=== PATIENT | female | born 1975 | race American Indian/Alaskan Native ===

== ENCOUNTER 2017-11-08 22:47 | Emergency (ER) | payer SELFPAY ==
[2017-11-08] MEDS ORDERED: D5NS 0.2% 1,000 ML IV SCH (23:45)
[2017-11-08 23:48] VITALS: BP 124/78
== END 2017-11-09 02:00 | disposition left against medical advice (07) ==
LOC: ED 22:47
DX: M54.5 Low back pain (principal); Z53.21 Procedure and treatment not carried out due to patient leaving prior to being seen by health care provider

== ENCOUNTER 2017-12-16 13:03 | Emergency (ER) | payer MEDICARE ==
[2017-12-16] MEDS ORDERED: ZOFRAN ODT PO ONE (14:09)
[2017-12-16] MEDS ORDERED: BANOPHEN PO ONE (14:09)
[2017-12-16] MEDS ORDERED: NACL 0.9% 1000 ML 1,000 ML IV ONE (14:10)
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
[2017-12-16 14:22] LABS: Hematocrit 32.5 % (30.3-42.9); Hemoglobin 11.1 gm/dl (10.1-14.3); Mean Corpuscular HGB Conc 34 % (30-34); Mean Corpuscular Hemoglobin 29 pg (28-32); Mean Corpuscular Volume 86 fl (79-97); Platelet Count 239 K/mm3 (140-440); Red Blood Count 3.79 M/mm3 (3.65-5.03); Red Cell Distribution Width 15.1 % (13.2-15.2)
[2017-12-16 14:23] LABS: BUN/Creatinine Ratio 24; Blood Urea Nitrogen 12 mg/dL (7-17); Calcium 8.7 mg/dL (8.4-10.2); Hemolysis Index 12
[2017-12-16] MEDS: MORPHINE IV PRN ×2 (14:53→15:23)
[2017-12-16 15:05] LABS: Total Cells Counted 100
[2017-12-16 15:06] LABS: Ovalocytes Few; Poikilocytosis 1+; Target Cells 1+
[2017-12-16 15:07] LABS: Platelet Estimate Consistent w Auto
[2017-12-16 15:59] VITALS: BP 114/73
== END 2017-12-16 16:24 | disposition home or self-care (01) ==
LOC: ED 13:03
DX: D57.00 Hb-SS disease with crisis, unspecified (principal); F17.200 Nicotine dependence, unspecified, uncomplicated
CPT/HCPCS: 36415; 80048; 85007; 85025; 85045; 96374; 99283; J2270; J7030; Q0162; Q0163

== ENCOUNTER 2017-12-18 22:11 | Emergency (ER) | payer MEDICARE ==
[2017-12-18] MEDS ORDERED: D5NS 0.2% 1,000 ML IV SCH (23:45)
[2017-12-19 00:52] LABS: Hematocrit 30.5 % (30.3-42.9); Hemoglobin 10.8 gm/dl (10.1-14.3); Mean Corpuscular HGB Conc 35 % (30-34); Mean Corpuscular Hemoglobin 30 pg (28-32); Mean Corpuscular Volume 85 fl (79-97); Platelet Count 218 K/mm3 (140-440); Red Blood Count 3.58 M/mm3 (3.65-5.03); Red Cell Distribution Width 15.5 % (13.2-15.2)
[2017-12-19] MEDS ORDERED: MORPHINE IV ONE (03:20)
[2017-12-19] MEDS ORDERED: ZOFRAN IV ONE (03:20)
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
[2017-12-19 03:56] LABS: Basophils % (Manual) 0 % (0.0-1.8); Total Cells Counted 100
[2017-12-19 03:57] LABS: Target Cells 1+
[2017-12-19 04:36] VITALS: BP 116/75
== END 2017-12-19 04:23 | disposition home or self-care (01) ==
LOC: ED 22:11
DX: D57.00 Hb-SS disease with crisis, unspecified (principal); I10 Essential (primary) hypertension; Z86.711 Personal history of pulmonary embolism
CPT/HCPCS: 36415; 84703; 85007; 85025; 85045; 96374; 96375; 99283; J2270; J2405

== ENCOUNTER 2018-11-19 11:36 | Emergency (ER) | payer MEDICARE ==
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
[2018-11-19 12:04] LABS: Hematocrit 29.9 % (30.3-42.9); Mean Corpuscular HGB Conc 34 % (30-34); Mean Corpuscular Volume 87 fl (79-97); Platelet Count 543 K/mm3 (140-440); Red Blood Count 3.44 M/mm3 (3.65-5.03); Red Cell Distribution Width 18.9 % (13.2-15.2)
[2018-11-19 12:09] LABS: Bilirubin,Urine NEG (Negative); Blood,Urine NEG (Negative); Color,Urine Yellow (Yellow); Mucus,Urine FEW /HPF; Protein,Urine <15 mg/dL mg/dL (Negative); Urobilinogen,Urine < 2.0 mg/dL (<2.0)
[2018-11-19 12:18] LABS: BUN/Creatinine Ratio 15; Blood Urea Nitrogen 9 mg/dL (7-17); Calcium 8.2 mg/dL (8.4-10.2); Hemolysis Index 7
[2018-11-19 12:24] LABS: Amphetamine Screen,Urine PRESUMPTIVE NEGATIVE; Benzodiazepines Screen,Urine PRESUMPTIVE NEGATIVE; Cannabinoid Screen,Urine PRESUMPTIVE NEGATIVE; Cocaine Screen,Urine PRESUMPTIVE NEGATIVE; Methadone Screen,Urine PRESUMPTIVE NEGATIVE; Opiate Screen,Urine PRESUMPTIVE NEGATIVE
[2018-11-19 12:38] LABS: Basophils % (Manual) 0 % (0.0-1.8); Total Cells Counted 100
[2018-11-19 12:39] LABS: Giant Platelets Rare; Platelet Estimate Consistent w Auto; Poikilocytosis 1+; Target Cells 1+
[2018-11-19] MEDS ORDERED: HALDOL IM PRN (12:40)
[2018-11-19] MEDS ORDERED: ATIVAN IM PRN (12:40)
[2018-11-19] MEDS ORDERED: ROXICODONE PO PRN (12:47)
--- NOTE | 2018-11-19 13:09 | Emergency Department Report ---
ED General Adult HPI - General Chief complaint: Psych Stated complaint: MENTAL EVAL Time Seen by Provider: 11/19/18 11:40 Source: patient, RN notes reviewed, old records reviewed Mode of arrival: Ambulatory Limitations: No Limitations - History of Present Illness Initial comments: This is a 43-year-old female. I have evaluated this patient in the past. Her past medical history includes bipolar disorder, not currently taking any medications secondary to having ran out of her medications last week, and sickle cell disease. The patient presents to the emergency room with a complaint of suicidality. She wants to cut herself. She reports that she is depressed. She has not tried to overdose. She denies access to guns or firearms. She reports feeling stressed out about her personal life. She has chronic back pain. It is aching, throbbing and sharp, increases with palpation and decreases with rest. It does not radiate anywhere. There is no abdominal pain. There are no urinary symptoms. The patient does not endorse sickle cell pain at this time. -: Gradual Location: back Radiation: non-radiation Quality: aching Consistency: other Improves with: other Worsens with: other - Related Data Previous Rx's Medication Instructions Recorded Last Taken Type HYDROcodone/APAP 10-325 [[place] 1 each PO Q6HR PRN #20 tablet 12/16/17 Unknown Rx 10/325] Promethazine [Phenergan TAB] 25 mg PO Q6HR PRN #20 tab 12/16/17 Unknown Rx Allergies Allergy/AdvReac Type Severity Reaction Status Date / Time aztreonam [From Azactam] Allergy Anaphylaxis Verified 11/19/18 11:38 butorphanol [From Stadol] Allergy Hives Verified 11/19/18 11:38 ketorolac [From Toradol] Allergy Hives Verified 11/19/18 11:38 prochlorperazine Allergy Hives Verified 11/19/18 11:38 [From Compazine] ED Review of Systems ROS: Stated complaint: MENTAL EVAL Other details as noted in HPI Constitutional: malaise. denies: fever Eyes: denies: vision change ENT: denies: epistaxis Respiratory: denies: cough Cardiovascular: denies: chest pain Gastrointestinal: denies: abdominal pain Genitourinary: denies: dysuria Musculoskeletal: back pain Skin: denies: lesions Neurological: weakness. denies: headache, numbness, paresthesias, confusion, abnormal gait, vertigo Psychiatric: anxiety, depression, suicidal thoughts ED Past Medical Hx - Past Medical History Previous Medical History?: Yes Hx Hypertension: Yes Hx Sickle Cell Disease: Yes Additional medical history: a vascular necrosis, PE (2018) - Surgical History Past Surgical History?: Yes Additional Surgical History: C section - Social History Smoking Status: Never Smoker Substance Use Type: None - Medications Home Medications: Home Medications Medication Instructions Recorded Confirmed Last Taken Type HYDROcodone/APAP 10-325 [[place] 1 each PO Q6HR PRN #20 tablet 12/16/17 Unknown Rx 10/325] Promethazine [Phenergan TAB] 25 mg PO Q6HR PRN #20 tab 12/16/17 Unknown Rx ED Physical Exam - General Limitations: No Limitations General appearance: alert, anxious - Head Head exam: Present: atraumatic, normocephalic - Eye Eye exam: Present: normal appearance, PERRL, EOMI, other (visual acuity intact to finger counting, color perception, reading at a close distance). Absent: nystagmus - ENT ENT exam: Present: normal exam, normal orophraynx, mucous membranes moist, normal external ear exam - Neck Neck exam: Present: normal inspection, full ROM. Absent: tenderness, meningismus - Respiratory Respiratory exam: Present: normal lung sounds bilaterally. Absent: respiratory distress - Cardiovascular Cardiovascular Exam: Present: regular rate, normal rhythm, normal heart sounds. Absent: bradycardia, tachycardia, irregular rhythm, systolic murmur, diastolic murmur, rubs, gallop - GI/Abdominal GI/Abdominal exam: Present: soft. Absent: distended, tenderness, guarding, rebound, rigid, pulsatile mass - Extremities Exam Extremities exam: Present: normal inspection, full ROM, other (2+ pulses noted in the bilateral upper, lower extremities. Compartments soft. No long bony tenderness. The pelvis is stable.). Absent: pedal edema, joint swelling, calf tenderness - Back Exam Back exam: Present: normal inspection, full ROM. Absent: tenderness, CVA tenderness (R), CVA tenderness (L), paraspinal tenderness, vertebral tenderness - Neurological Exam Neurological exam: Present: alert, oriented X3, normal gait, other (Extraocular movements intact. Tongue midline. No facial droop. Facial sensation intact to light touch in the V1, V2, V3 distribution bilaterally. 5 and 5 strength in 4 extremities.. Sensation is intact to light touch in 4 extremities.). Absent: motor sensory deficit - Psychiatric Psychiatric exam: Present: anxious - Skin Skin exam: Present: warm, dry, intact, normal color. Absent: rash ED Course Vital Signs 11/19/18 11:41 Temperature 98.4 F Pulse Rate 87 Respiratory 20 Rate Blood Pressure 140/92 O2 Sat by Pulse 100 Oximetry ED Medical Decision Making - Lab Data Result diagrams: 11/19/18 11:46 11/19/18 11:46 Vital Signs 11/19/18 11:41 Temperature 98.4 F Pulse Rate 87 Respiratory 20 Rate Blood Pressure 140/92 O2 Sat by Pulse 100 Oximetry Lab Results 11/19/18 11/19/18 11/19/18 Range/Units 11:46 11:46 11:46 WBC (4.5-11.0) K/mm3 RBC (3.65-5.03) M/mm3 Hgb (10.1-14.3) gm/dl Hct (30.3-42.9) % MCV (79-97) fl MCH (28-32) pg MCHC (30-34) % RDW (13.2-15.2) % Plt Count (140-440) K/mm3 Lymph % (Auto) Add Manual Diff Total Counted Seg Neutrophils % Seg Neuts % (Manual) (40.0-70.0) % Band Neutrophils % % Lymphocytes % (Manual) (13.4-35.0) % Reactive Lymphs % (Man) % Monocytes % (Manual) (0.0-7.3) % Eosinophils % (Manual) (0.0-4.3) % Basophils % (Manual) (0.0-1.8) % Metamyelocytes % % Myelocytes % % Promyelocytes % % Blast Cells % % Nucleated RBC % Seg Neutrophils # Man (1.8-7.7) K/mm3 Band Neutrophils # K/mm3 Lymphocytes # (Manual) (1.2-5.4) K/mm3 Abs React Lymphs (Man) K/mm3 Monocytes # (Manual) (0.0-0.8) K/mm3 Eosinophils # (Manual) (0.0-0.4) K/mm3 Basophils # (Manual) (0.0-0.1) K/mm3 Metamyelocytes # K/mm3 Myelocytes # K/mm3 Promyelocytes # K/mm3 Blast Cells # K/mm3 WBC Morphology Hypersegmented Neuts Hyposegmented Neuts Hypogranular Neuts Smudge Cells Toxic Granulation Toxic Vacuolation Dohle Bodies Pelger-Huet Anomaly Lottie Rods Platelet Estimate Clumped Platelets Plt Clumps, EDTA Large Platelets Giant Platelets Platelet Satelliting Plt Morphology Comment RBC Morphology Dimorphic RBCs Polychromasia Hypochromasia Poikilocytosis Anisocytosis Microcytosis Macrocytosis Spherocytes Pappenheimer Bodies Sickle Cells Target Cells Tear Drop Cells Ovalocytes Helmet Cells [place] Bodies [place] Rings [place] Cells Bite Cells Crenated Cell Elliptocytes Acanthocytes (Spur) Rouleaux Hemoglobin C Crystals Schistocytes Malaria parasites Jer Bodies Hem Pathologist Commnt Sodium 134 L (137-145) mmol/L Potassium 4.3 (3.6-5.0) mmol/L Chloride 104.0 (98-107) mmol/L Carbon Dioxide 19 L (22-30) mmol/L Anion Gap 15 mmol/L BUN 9 (7-17) mg/dL Creatinine 0.6 L (0.7-1.2) mg/dL Estimated GFR > 60 ml/min BUN/Creatinine Ratio 15 % Glucose 76 (65-100) mg/dL Calcium 8.2 L (8.4-10.2) mg/dL Urine Color (Yellow) Urine Turbidity (Clear) Urine pH (5.0-7.0) Ur Specific [place] (1.003-1.030) Urine Protein (Negative) mg/dL Urine Glucose (UA) (Negative) mg/dL Urine Ketones (Negative) mg/dL Urine Blood (Negative) Urine Nitrite (Negative) Urine Bilirubin (Negative) Urine Urobilinogen (<2.0) mg/dL Ur Leukocyte Esterase (Negative) Urine WBC (Auto) (0.0-6.0) /HPF Urine RBC (Auto) (0.0-6.0) /HPF U Epithel Cells (Auto) (0-13.0) /HPF Urine Mucus /HPF Salicylates < 0.3 L (2.8-20.0) mg/dL Urine Opiates Screen Urine Methadone Screen Acetaminophen < 5.0 L (10.0-30.0) ug/mL Ur Barbiturates Screen Ur Phencyclidine Scrn Ur Amphetamines Screen U Benzodiazepines Scrn Urine Cocaine Screen U Marijuana (THC) Screen Drugs of Abuse Note Plasma/Serum Alcohol (0-0.07) % 11/19/18 11/19/18 11/19/18 Range/Units 11:46 11:46 11:51 WBC 4.8 (4.5-11.0) K/mm3 RBC 3.44 L (3.65-5.03) M/mm3 Hgb 10.0 L (10.1-14.3) gm/dl Hct 29.9 L (30.3-42.9) % MCV 87 (79-97) fl MCH 29 (28-32) pg MCHC 34 (30-34) % RDW 18.9 H (13.2-15.2) % Plt Count 543 H (140-440) K/mm3 Lymph % (Auto) Prefinish Operator Add Manual Diff Complete Total Counted 100 Seg Neutrophils % Prefinish Operator Seg Neuts % (Manual) 55.0 (40.0-70.0) % Band Neutrophils % 0 % Lymphocytes % (Manual) 41.0 H (13.4-35.0) % Reactive Lymphs % (Man) 0 % Monocytes % (Manual) 2.0 (0.0-7.3) % Eosinophils % (Manual) 2.0 (0.0-4.3) % Basophils % (Manual) 0 (0.0-1.8) % Metamyelocytes % 0 % Myelocytes % 0 % Promyelocytes % 0 % Blast Cells % 0 % Nucleated RBC % Not Reportable Seg Neutrophils # Man 2.6 (1.8-7.7) K/mm3 Band Neutrophils # 0.0 K/mm3 Lymphocytes # (Manual) 2.0 (1.2-5.4) K/mm3 Abs React Lymphs (Man) 0.0 K/mm3 Monocytes # (Manual) 0.1 (0.0-0.8) K/mm3 Eosinophils # (Manual) 0.1 (0.0-0.4) K/mm3 Basophils # (Manual) 0.0 (0.0-0.1) K/mm3 Metamyelocytes # 0.0 K/mm3 Myelocytes # 0.0 K/mm3 Promyelocytes # 0.0 K/mm3 Blast Cells # 0.0 K/mm3 WBC Morphology Not Reportable Hypersegmented Neuts Not Reportable Hyposegmented Neuts Not Reportable Hypogranular Neuts Not Reportable Smudge Cells Not Reportable Toxic Granulation Not Reportable Toxic Vacuolation Not Reportable Dohle Bodies Not Reportable Pelger-Huet Anomaly Not Reportable Lottie Rods Not Reportable Platelet Estimate Consistent w auto Clumped Platelets Not Reportable Plt Clumps, EDTA Not Reportable Large Platelets Not Reportable Giant Platelets Rare Platelet Satelliting Not Reportable Plt Morphology Comment Not Reportable RBC Morphology Not Reportable Dimorphic RBCs Not Reportable Polychromasia Not Reportable Hypochromasia Not Reportable Poikilocytosis 1+ Anisocytosis Not Reportable Microcytosis Not Reportable Macrocytosis Not Reportable Spherocytes Not Reportable Pappenheimer Bodies Not Reportable Sickle Cells Not Reportable Target Cells 1+ Tear Drop Cells Not Reportable Ovalocytes Not Reportable Helmet Cells Not Reportable [place] Bodies Not Reportable [place] Rings Not Reportable [place] Cells Not Reportable Bite Cells Not Reportable Crenated Cell Not Reportable Elliptocytes Not Reportable Acanthocytes (Spur) Not Reportable Rouleaux Not Reportable Hemoglobin C Crystals Not Reportable Schistocytes Not Reportable Malaria parasites Not Reportable Jer Bodies Not Reportable Hem Pathologist Commnt No Sodium (137-145) mmol/L Potassium (3.6-5.0) mmol/L Chloride (98-107) mmol/L Carbon Dioxide (22-30) mmol/L Anion Gap mmol/L BUN (7-17) mg/dL Creatinine (0.7-1.2) mg/dL Estimated GFR ml/min BUN/Creatinine Ratio % Glucose (65-100) mg/dL Calcium (8.4-10.2) mg/dL Urine Color Yellow (Yellow) Urine Turbidity Clear (Clear) Urine pH 5.0 (5.0-7.0) Ur Specific [place] 1.015 (1.003-1.030) Urine Protein <15 mg/dl (Negative) mg/dL Urine Glucose (UA) Neg (Negative) mg/dL Urine Ketones Neg (Negative) mg/dL Urine Blood Neg (Negative) Urine Nitrite Neg (Negative) Urine Bilirubin Neg (Negative) Urine Urobilinogen < 2.0 (<2.0) mg/dL Ur Leukocyte Esterase Neg (Negative) Urine WBC (Auto) 1.0 (0.0-6.0) /HPF Urine RBC (Auto) 1.0 (0.0-6.0) /HPF U Epithel Cells (Auto) 2.0 (0-13.0) /HPF Urine Mucus Few /HPF Salicylates (2.8-20.0) mg/dL Urine Opiates Screen Urine Methadone Screen Acetaminophen (10.0-30.0) ug/mL Ur Barbiturates Screen Ur Phencyclidine Scrn Ur Amphetamines Screen U Benzodiazepines Scrn Urine Cocaine Screen U Marijuana (THC) Screen Drugs of Abuse Note Plasma/Serum Alcohol < 0.01 (0-0.07) % 11/19/18 Range/Units 11:51 WBC (4.5-11.0) K/mm3 RBC (3.65-5.03) M/mm3 Hgb (10.1-14.3) gm/dl Hct (30.3-42.9) % MCV (79-97) fl MCH (28-32) pg MCHC (30-34) % RDW (13.2-15.2) % Plt Count (140-440) K/mm3 Lymph % (Auto) Add Manual Diff Total Counted Seg Neutrophils % Seg Neuts % (Manual) (40.0-70.0) % Band Neutrophils % % Lymphocytes % (Manual) (13.4-35.0) % Reactive Lymphs % (Man) % Monocytes % (Manual) (0.0-7.3) % Eosinophils % (Manual) (0.0-4.3) % Basophils % (Manual) (0.0-1.8) % Metamyelocytes % % Myelocytes % % Promyelocytes % % Blast Cells % % Nucleated RBC % Seg Neutrophils # Man (1.8-7.7) K/mm3 Band Neutrophils # K/mm3 Lymphocytes # (Manual) (1.2-5.4) K/mm3 Abs React Lymphs (Man) K/mm3 Monocytes # (Manual) (0.0-0.8) K/mm3 Eosinophils # (Manual) (0.0-0.4) K/mm3 Basophils # (Manual) (0.0-0.1) K/mm3 Metamyelocytes # K/mm3 Myelocytes # K/mm3 Promyelocytes # K/mm3 Blast Cells # K/mm3 WBC Morphology Hypersegmented Neuts Hyposegmented Neuts Hypogranular Neuts Smudge Cells Toxic Granulation Toxic Vacuolation Dohle Bodies Pelger-Huet Anomaly Lottie Rods Platelet Estimate Clumped Platelets Plt Clumps, EDTA Large Platelets Giant Platelets Platelet Satelliting Plt Morphology Comment RBC Morphology Dimorphic RBCs Polychromasia Hypochromasia Poikilocytosis Anisocytosis Microcytosis Macrocytosis Spherocytes Pappenheimer Bodies Sickle Cells Target Cells Tear Drop Cells Ovalocytes Helmet Cells [place] Bodies [place] Rings [place] Cells Bite Cells Crenated Cell Elliptocytes Acanthocytes (Spur) Rouleaux Hemoglobin C Crystals Schistocytes Malaria parasites Jer Bodies Hem Pathologist Commnt Sodium (137-145) mmol/L Potassium (3.6-5.0) mmol/L Chloride (98-107) mmol/L Carbon Dioxide (22-30) mmol/L Anion Gap mmol/L BUN (7-17) mg/dL Creatinine (0.7-1.2) mg/dL Estimated GFR ml/min BUN/Creatinine Ratio % Glucose (65-100) mg/dL Calcium (8.4-10.2) mg/dL Urine Color (Yellow) Urine Turbidity (Clear) Urine pH (5.0-7.0) Ur Specific [place] (1.003-1.030) Urine Protein (Negative) mg/dL Urine Glucose (UA) (Negative) mg/dL Urine Ketones (Negative) mg/dL Urine Blood (Negative) Urine Nitrite (Negative) Urine Bilirubin (Negative) Urine Urobilinogen (<2.0) mg/dL Ur Leukocyte Esterase (Negative) Urine WBC (Auto) (0.0-6.0) /HPF Urine RBC (Auto) (0.0-6.0) /HPF U Epithel Cells (Auto) (0-13.0) /HPF Urine Mucus /HPF Salicylates (2.8-20.0) mg/dL Urine Opiates Screen Presumptive negative Urine Methadone Screen Presumptive negative Acetaminophen (10.0-30.0) ug/mL Ur Barbiturates Screen Presumptive negative Ur Phencyclidine Scrn Presumptive negative Ur Amphetamines Screen Presumptive negative U Benzodiazepines Scrn Presumptive negative Urine Cocaine Screen Presumptive negative U Marijuana (THC) Screen Presumptive negative Drugs of Abuse Note Disclamer Plasma/Serum Alcohol (0-0.07) % - Medical Decision Making Differential diagnosis, including but not limited to: Suicidality, mood disorder , chronic pain syndrome, anxiety, medical clearance for psychiatric placement Assessment and plan: 43-year-old female with a primary complaint of suicidality and wanting to hurt herself. She endorses numerous psychosocial stressors. Her physical exam is unremarkable. Screening laboratory studies are unremarkable. No significant musculoskeletal tenderness noted. The patient is placed on a 1013. Explained significance of the 1013 to the patient. She verbalizes understanding. We have requested a psychiatric consultation. At this point in time, the patient does not appear to have an immediate medical contraindication to psychiatric admission, evaluation, consultation, placement. Critical care attestation.: If time is entered above; I have spent that time in minutes in the direct care of this critically ill patient, excluding procedure time. ED Disposition Clinical Impression: Medical clearance for psychiatric admission Disposition: DC/TX-65 PSY HOSP/PSY UNIT Is pt being admited?: No Does the pt Need Aspirin: No Condition: Stable Referrals: GUILLERMO LANDRUM MD [Primary Care Provider] - 3-5 Days
[2018-11-19 20:54] VITALS: BP 93/64
== END 2018-11-19 21:53 ==
LOC: ED 11:36 → EEVIPCON 11:36 → ED 21:53
DX: F31.9 Bipolar disorder, unspecified (principal); I10 Essential (primary) hypertension; Z88.6 Allergy status to analgesic agent; Z88.8 Allergy status to other drugs, medicaments and biological substances
CPT/HCPCS: 36415; 80048; 80164; 80307; 81001; 85007; 85025; 96372; 99285; G0480; J2060; 80320

== ENCOUNTER 2018-11-29 19:26 | Emergency (ER) | payer MEDICARE ==
[2018-11-29 19:47] VITALS: BP 119/68
--- NOTE | 2018-11-29 20:14 | Emergency Department Report ---
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
[2018-11-29] MEDS ORDERED: TYLENOL PO ONE (20:16)
[2018-11-29] MEDS ORDERED: TYLENOL ONE (20:19)
--- NOTE | 2018-11-29 20:21 | Emergency Department Report ---
Blank Doc - Documentation Documentation: 8:19 PM pt is refusing labs, states she will have her labs drawn once she has a room and has an IV pt requesting something for pain in triage, advised pt all we have up front is tylenol, pt asked for tylenol 3 advised that we do not have tylenol 3 in triage, pt given tylenol in triage
[2018-11-29 21:38] LABS: Hemoglobin 10.1 gm/dl (10.1-14.3); Mean Corpuscular HGB Conc 35 % (30-34); Mean Corpuscular Volume 88 fl (79-97); Platelet Count 367 K/mm3 (140-440); Red Blood Count 3.31 M/mm3 (3.65-5.03); Red Cell Distribution Width 19.9 % (13.2-15.2)
[2018-11-29 21:51] LABS: Alanine Aminotransferase 12 units/L (7-56); Albumin 4.1 g/dL (3.9-5); BUN/Creatinine Ratio 29; Blood Urea Nitrogen 20 mg/dL (7-17); Calcium 9.1 mg/dL (8.4-10.2); Hemolysis Index 47
[2018-11-29 22:57] LABS: Basophils % (Manual) 0 % (0.0-1.8); Total Cells Counted 100
[2018-11-29 22:58] LABS: Anisocytosis 1+; Hypochromasia 1+; Platelet Estimate Consistent w Auto; Target Cells 1+
[2018-11-29 22:59] LABS: Poikilocytosis Few
== END 2018-11-29 21:00 | disposition left against medical advice (07) ==
LOC: ED 19:26
DX: D57.80 Other sickle-cell disorders without crisis (principal); Z53.21 Procedure and treatment not carried out due to patient leaving prior to being seen by health care provider
CPT/HCPCS: 36415; 80053; 83615; 84703; 85007; 85025; 85045

== ENCOUNTER 2018-11-30 08:13 | Emergency (ER) | payer MEDICARE ==
[2018-11-30] MEDS ORDERED: TYLENOL #3 PO ONE (09:36)
--- NOTE | 2018-11-30 09:45 | Emergency Department Report ---
ED General Adult HPI - General Chief complaint: Sickle Cell Crisis Stated complaint: SICKLE CELL CRISIS Time Seen by Provider: 11/30/18 08:55 Source: patient Mode of arrival: Ambulatory Limitations: No Limitations - History of Present Illness Initial comments: 43-year-old female presents to ED with complaint of sickle cell pain. Patient reports history of sickle cell disease, states is currently having pain in her lower back and bilateral legs. Patient seen for same yesterday, but states she did not stay (chart states pt demanded pain meds prior to being given a treatment room). Also reports she was discharged from psych facility yesterday for suicidal ideations, which patient currently denies. Pt reports she is out of her tylenol #3 and needs a refill. - Related Data Previous Rx's Medication Instructions Recorded Last Taken Type HYDROcodone/APAP 10-325 [[place] 1 each PO Q6HR PRN #20 tablet 12/16/17 Unknown Rx 10/325] Promethazine [Phenergan TAB] 25 mg PO Q6HR PRN #20 tab 12/16/17 Unknown Rx Allergies Allergy/AdvReac Type Severity Reaction Status Date / Time aztreonam [From Azactam] Allergy Anaphylaxis Verified 11/19/18 11:38 butorphanol [From Stadol] Allergy Hives Verified 11/19/18 11:38 ketorolac [From Toradol] Allergy Hives Verified 11/19/18 11:38 prochlorperazine Allergy Hives Verified 11/19/18 11:38 [From Compazine] ED Review of Systems ROS: Stated complaint: SICKLE CELL CRISIS Other details as noted in HPI ED Past Medical Hx - Past Medical History Previous Medical History?: Yes Hx Hypertension: Yes Hx Sickle Cell Disease: Yes Additional medical history: 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), PE (2018) - Surgical History Additional Surgical History: C section - Social History Smoking Status: Current Every Day Smoker Substance Use Type: None - Medications Home Medications: Home Medications Medication Instructions Recorded Confirmed Last Taken Type HYDROcodone/APAP 10-325 [[place] 1 each PO Q6HR PRN #20 tablet 12/16/17 11/19/18 Unknown Rx 10/325] Promethazine [Phenergan TAB] 25 mg PO Q6HR PRN #20 tab 12/16/17 11/19/18 Unknown Rx ED Physical Exam - General Limitations: No Limitations ED Course Vital Signs 11/30/18 11/30/18 08:19 10:38 Temperature 98.2 F Pulse Rate 107 H Respiratory 16 16 Rate Blood Pressure 106/72 O2 Sat by Pulse 100 Oximetry - Reevaluation(s) Reevaluation #1: 11/30/18 10:54 Labs unremarkable w/ nml Hb and retic count. Pt sitting on stretcher eating an apple. Informed pt that she will has been flagged as a prescription drug shop per and that she will not be getting any narcotic medications. 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 "Please note that this person has received controlled substances prescriptions written by 17 prescribers and had them filled at 9 pharmacies during the past 3 months" - hx of sickle cell disease is questionable given pt's labs - also due to recent psych admission for SI, it is not advisable to prescribe pain meds, which could be used for overdose - outpt f/u advised - Differential Diagnosis sickle cell, drug-seeking behavior Critical care attestation.: If time is entered above; I have spent that time in minutes in the direct care of this critically ill patient, excluding procedure time. ED Disposition Clinical Impression: Drug-seeking behavior Disposition: DC-01 TO HOME OR SELFCARE Is pt being admited?: No Condition: Stable Instructions: Chronic Pain (ED) Referrals: PRIMARY CARE, [Primary Care Provider] - 3-5 Days [facility] [Provider Group] - 3-5 Days Time of Disposition: 10:52
[2018-11-30 10:37] LABS: Hematocrit 31.1 % (30.3-42.9); Hemoglobin 10.5 gm/dl (10.1-14.3); Mean Corpuscular HGB Conc 34 % (30-34); Mean Corpuscular Volume 87 fl (79-97); Platelet Count 402 K/mm3 (140-440); Red Blood Count 3.57 M/mm3 (3.65-5.03); Red Cell Distribution Width 19.8 % (13.2-15.2)
[2018-11-30 11:01] VITALS: BP 117/81
[2018-11-30 12:41] LABS: Anisocytosis 1+; Total Cells Counted 100
[2018-11-30 12:42] LABS: Platelet Estimate Consistent w Auto; Target Cells 1+
== END 2018-11-30 11:00 | disposition home or self-care (01) ==
LOC: ED 08:13
DX: T39.1X1A Poisoning by 4-Aminophenol derivatives, accidental (unintentional), initial encounter (principal); I10 Essential (primary) hypertension; D57.00 Hb-SS disease with crisis, unspecified; Z86.711 Personal history of pulmonary embolism; Z88.5 Allergy status to narcotic agent; Z88.8 Allergy status to other drugs, medicaments and biological substances; Y92.89 Other specified places as the place of occurrence of the external cause
CPT/HCPCS: 36415; 85007; 85025; 85045; 99283

== ENCOUNTER 2018-12-03 18:54 | Emergency (ER) | payer MEDICARE ==
--- NOTE | 2018-12-03 19:19 | Emergency Department Report ---
Chief Complaint: Sickle Cell Crisis Stated Complaint: SICKLE CELL Time Seen by Provider: 12/03/18 19:15 - HPI History of Present Illness: This is a 43 y.o. F. that presents to the ER with body aches and possible sickle cell crisis. - Exam Vital Signs: Vital Signs 12/03/18 19:15 Temperature 99 F Pulse Rate 108 H Respiratory 18 Rate Blood Pressure 117/71 O2 Sat by Pulse 99 Oximetry MSE screening note: Focused history and physical exam performed. Due to findings the following was ordered: This initial assessment/diagnostic orders/clinical plan/treatment(s) is/are subject to change based on patient's health status, clinical progression and re- assessment by fellow clinical providers in the ED. Further treatment and workup at subsequent clinical providers discretion. Patient/guardians urged not to elope from the ED as their condition may be serious if not clinically assessed and managed. Initial orders include: 1- Patient sent to Main ED for further evaluation and treatment 2- Labs ED Disposition for MSE Condition: Stable
[2018-12-03] MEDS ORDERED: TYLENOL ONE (19:21)
[2018-12-03 20:03] LABS: Hematocrit 26.5 % (30.3-42.9); Hemoglobin 8.9 gm/dl (10.1-14.3); Mean Corpuscular HGB Conc 34 % (30-34); Mean Corpuscular Volume 88 fl (79-97); Platelet Count 282 K/mm3 (140-440); Red Blood Count 3.03 M/mm3 (3.65-5.03); Red Cell Distribution Width 19.4 % (13.2-15.2)
[2018-12-03 20:04] LABS: Basophils # (Auto) 0.1 K/mm3 (0.0-0.1); Basophils % (Auto) 1.4 % (0.0-1.8); Eosinophils # (Auto) 0.4 K/mm3 (0.0-0.4); Lymphocytes % (Auto) 35.8 % (13.4-35.0); Monocytes # (Auto) 0.6 K/mm3 (0.0-0.8); Monocytes % (Auto) 7.6 % (0.0-7.3)
[2018-12-03 20:25] LABS: BUN/Creatinine Ratio 25; Blood Urea Nitrogen 20 mg/dL (7-17); Calcium 8.6 mg/dL (8.4-10.2); Hemolysis Index 14
[2018-12-03 21:59] LABS: Bacteria,Urine 1+ /HPF (Negative); Bilirubin,Urine NEG (Negative); Blood,Urine NEG (Negative); Color,Urine Yellow (Yellow); Protein,Urine <15 mg/dL mg/dL (Negative); Urobilinogen,Urine < 2.0 mg/dL (<2.0); WBC,Urine < 1.0 /HPF (0.0-6.0)
[2018-12-03] MEDS ORDERED: ZOFRAN IV ONE (23:48)
[2018-12-03] MEDS ORDERED: BENADRYL IV ONE (23:48)
[2018-12-03] MEDS ORDERED: MORPHINE IV ONE (23:48)
--- NOTE | 2018-12-03 23:54 | Emergency Department Report ---
ED General Adult HPI - General Chief complaint: Sickle Cell Crisis Stated complaint: SICKLE CELL Time Seen by Provider: 12/03/18 19:15 Source: patient Mode of arrival: Ambulatory Limitations: No Limitations - History of Present Illness Initial comments: Mrs. Ayon is a 43 yo female with hx of Hgb SC who presents with back and leg pain 8/10 in severity. Achy. REcently admitted to [facility] for mental health concerns. denies fever, cough, shortness of breath. Her district home economics agent is Dr. Sanders. She normally takes Tylenol #3. But she does not have this medication. -: Gradual, days(s) (2) Location: back, left, right, lower extremity Severity scale (0 -10): 8 Quality: aching Consistency: constant Improves with: none Worsens with: none - Related Data Previous Rx's Medication Instructions Recorded Last Taken Type HYDROcodone/APAP 10-325 [[place] 1 each PO Q6HR PRN #20 tablet 12/16/17 Unknown Rx 10/325] Promethazine [Phenergan TAB] 25 mg PO Q6HR PRN #20 tab 12/16/17 Unknown Rx Allergies Allergy/AdvReac Type Severity Reaction Status Date / Time aztreonam [From Azactam] Allergy Anaphylaxis Verified 11/19/18 11:38 butorphanol [From Stadol] Allergy Hives Verified 12/03/18 18:56 fentanyl Allergy Unknown Verified 12/03/18 18:56 ketorolac [From Toradol] Allergy Hives Verified 12/03/18 18:56 meperidine [From Demerol] Allergy Unknown Verified 12/03/18 18:56 prochlorperazine Allergy Hives Verified 12/03/18 18:56 [From Compazine] ED Review of Systems ROS: Stated complaint: SICKLE CELL Other details as noted in HPI Comment: All other systems reviewed and negative Constitutional: denies: fever, malaise Respiratory: denies: cough Cardiovascular: denies: chest pain Gastrointestinal: denies: abdominal pain ED Past Medical Hx - Past Medical History Previous Medical History?: Yes Hx Hypertension: Yes Hx Sickle Cell Disease: Yes Additional medical history: 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), PE (2018) - Surgical History Past Surgical History?: Yes Additional Surgical History: C section - Social History Smoking Status: Current Every Day Smoker Substance Use Type: None - Medications Home Medications: Home Medications Medication Instructions Recorded Confirmed Last Taken Type HYDROcodone/APAP 10-325 [[place] 1 each PO Q6HR PRN #20 tablet 12/16/17 11/19/18 Unknown Rx 10/325] Promethazine [Phenergan TAB] 25 mg PO Q6HR PRN #20 tab 12/16/17 11/19/18 Unknown Rx ED Physical Exam - General Limitations: No Limitations General appearance: alert, in no apparent distress - Head Head exam: Present: atraumatic, normocephalic - Eye Eye exam: Present: normal appearance - ENT ENT exam: Present: mucous membranes moist - Neck Neck exam: Present: normal inspection, full ROM - Respiratory Respiratory exam: Present: normal lung sounds bilaterally. Absent: respiratory distress, wheezes, rales, rhonchi - Cardiovascular Cardiovascular Exam: Present: regular rate, normal rhythm, normal heart sounds. Absent: systolic murmur, diastolic murmur, rubs, gallop - GI/Abdominal GI/Abdominal exam: Present: soft, normal bowel sounds. Absent: distended, tenderness, guarding, rebound - Extremities Exam Extremities exam: Present: normal inspection - Back Exam Back exam: Present: normal inspection - Neurological Exam Neurological exam: Present: alert, oriented X3 - Psychiatric Psychiatric exam: Present: normal affect, normal mood - Skin Skin exam: Present: warm, dry, intact, normal color. Absent: rash ED Course Vital Signs 12/03/18 12/03/18 12/04/18 19:05 19:15 00:30 Temperature 99.0 F 99 F Pulse Rate 107 H 108 H Respiratory 18 18 16 Rate Blood Pressure 117/71 117/71 O2 Sat by Pulse 99 99 Oximetry ED Medical Decision Making - Lab Data Result diagrams: 12/03/18 19:30 12/03/18 19:30 Laboratory Results - last 24 hr 12/03/18 12/03/18 12/03/18 19:30 19:30 19:56 WBC 8.5 RBC 3.03 L Hgb 8.9 L Hct 26.5 L MCV 88 MCH 30 MCHC 34 RDW 19.4 H Plt Count 282 Lymph % (Auto) 35.8 H [place] % (Auto) 7.6 H Eos % (Auto) 5.0 H Baso % (Auto) 1.4 Lymph # 3.0 [place] # 0.6 Eos # 0.4 Baso # 0.1 Seg Neutrophils % 50.2 Seg Neutrophils # 4.3 Percent Retic 2.50 Sodium 138 Potassium 4.9 Chloride 105.9 Carbon Dioxide 19 L Anion Gap 18 BUN 20 H Creatinine 0.8 Estimated GFR > 60 BUN/Creatinine Ratio 25 Glucose 98 Calcium 8.6 Urine Color Yellow Urine Turbidity Clear Urine pH 6.0 Ur Specific [place] 1.011 Urine Protein <15 mg/dl Urine Glucose (UA) Neg Urine Ketones Neg Urine Blood Neg Urine Nitrite Neg Urine Bilirubin Neg Urine Urobilinogen < 2.0 Ur Leukocyte Esterase Neg Urine WBC (Auto) < 1.0 Urine RBC (Auto) 1.0 U Epithel Cells (Auto) 1.0 Urine Bacteria (Auto) 1+ - Medical Decision Making Mrs. Ayon presents with sickle cell disease pain crisis. Hemoglobin has dropped from 10-8.9. Reticular site, unchanged. No need for transfusion at this time. No evidence of acute sickle cell disease complication otherwise with the exception of vaso-occlusive pain crisis present at this time.. Received IM Morphine. She plans to see her district home economics agent on Sunday. dc'd home Critical care attestation.: If time is entered above; I have spent that time in minutes in the direct care of this critically ill patient, excluding procedure time. ED Disposition Clinical Impression: Sickle cell pain crisis Disposition: DC TO HOME OR SELFCARE Is pt being admited?: No Does the pt Need Aspirin: No Condition: Stable Referrals: [facility] MD NASIM [Primary Care Provider] - 3-5 Days
[2018-12-04] MEDS ORDERED: BENADRYL PO ONE ×2 (00:25→00:45)
[2018-12-04] MEDS ORDERED: ZOFRAN ODT PO ONE (00:25)
[2018-12-04] MEDS ORDERED: ZOFRAN ODT ONE (00:45)
[2018-12-04 01:24] VITALS: BP 135/80
== END 2018-12-04 01:24 | disposition home or self-care (01) ==
LOC: ED 18:54
DX: D57.00 Hb-SS disease with crisis, unspecified (principal); I10 Essential (primary) hypertension; F17.200 Nicotine dependence, unspecified, uncomplicated; Z88.5 Allergy status to narcotic agent; Z88.8 Allergy status to other drugs, medicaments and biological substances; Z86.711 Personal history of pulmonary embolism
CPT/HCPCS: 36415; 80048; 81001; 85025; 85045; 96374; 99283; J2270; J1200; J2405; Q0162

== ENCOUNTER 2018-12-16 07:46 | Emergency (ER) | payer MEDICARE ==
[2018-12-16 07:56] VITALS: BP 101/67
[2018-12-16 08:37] LABS: Hematocrit 26.7 % (30.3-42.9); Hemoglobin 9.2 gm/dl (10.1-14.3); Mean Corpuscular HGB Conc 34 % (30-34); Mean Corpuscular Volume 85 fl (79-97); Platelet Count 293 K/mm3 (140-440); Red Blood Count 3.14 M/mm3 (3.65-5.03)
[2018-12-16 08:40] LABS: Red Cell Distribution Width 20.8 % (13.2-15.2)
[2018-12-16 08:48] LABS: Alanine Aminotransferase 8 units/L (7-56); BUN/Creatinine Ratio 14; Blood Urea Nitrogen 11 mg/dL (7-17); Calcium 8.2 mg/dL (8.4-10.2); Hemolysis Index 7
[2018-12-16] MEDS ORDERED: NACL 0.9% 1000 ML 1,000 ML IV ONE (10:33)
[2018-12-16] MEDS ORDERED: ZOFRAN IV ONE (10:33)
== END 2018-12-16 11:40 ==
LOC: ED 07:46
DX: D57.1 Sickle-cell disease without crisis (principal); Z53.21 Procedure and treatment not carried out due to patient leaving prior to being seen by health care provider
CPT/HCPCS: 36415; 80053; 85027; 85045

== ENCOUNTER 2018-12-17 15:23 | Emergency (ER) | payer MEDICARE ==
[2018-12-17 15:35] VITALS: BP 124/82
[2018-12-17] MEDS ORDERED: TYLENOL PO ONE (15:37)
[2018-12-17] MEDS ORDERED: TYLENOL ONE (15:38)
--- NOTE | 2018-12-17 15:38 | Emergency Department Report ---
Blank Doc - Documentation Documentation: 43 y o female with a PMH of migraines presents to Ed cc of migraine headache states she takes tylenol 3 for headache but has ran out denies any trauma tylenol given in traige
[2018-12-17] MEDS ORDERED: DECADRON IV ONE (18:08)
[2018-12-17] MEDS ORDERED: NACL 0.9% 1000 ML 1,000 ML IV ONE (18:08)
[2018-12-17] MEDS ORDERED: REGLAN IV STA (18:08)
[2018-12-17] MEDS ORDERED: BENADRYL IV STA (18:08)
--- NOTE | 2018-12-17 18:15 | Emergency Department Report ---
ED Headache HPI - General Chief Complaint: Headache Stated Complaint: MIGRAINE Time Seen by Provider: 12/17/18 15:34 - History of Present Illness Quality: moderate Recent Head Trauma: no recent headache/trauma Associated Symptoms: denies: facial pain, fever/chills, nausea/vomiting, nasal congestion, nasal drainage, numbness in legs/feet, seizures, sinus infection, stiff neck Allergies/Adverse Reactions: Allergies aztreonam [From Azactam] Allergy (Verified 12/17/18 15:26) Anaphylaxis butorphanol [From Stadol] Allergy (Verified 12/17/18 15:26) Hives fentanyl Allergy (Verified 12/17/18 15:26) Unknown ketorolac [From Toradol] Allergy (Verified 12/17/18 15:26) Hives meperidine [From Demerol] Allergy (Verified 12/17/18 15:26) Unknown prochlorperazine [From Compazine] Allergy (Verified 12/17/18 15:26) Hives Home Medications: Ambulatory Orders HYDROcodone/APAP 10-325 [[place] 10/325] 1 each PO Q6HR PRN #20 tablet 12/16/17 Promethazine [Phenergan TAB] 25 mg PO Q6HR PRN #20 tab 12/16/17 Ibuprofen [Motrin 400 MG tab] 400 mg PO Q8H PRN #20 tablet 12/04/18 Butalb/Acetaminophen/Caffeine [Fioricet 50-300-40 mg CAP] 1 cap PO Q8HR PRN #15 cap 12/17/18 ED Review of Systems ROS: Stated complaint: MIGRAINE Other details as noted in HPI Constitutional: denies: chills, fever Eyes: denies: eye pain, eye discharge, vision change ENT: denies: ear pain, throat pain Respiratory: denies: cough, shortness of breath, wheezing Cardiovascular: denies: chest pain, palpitations Endocrine: no symptoms reported Gastrointestinal: denies: abdominal pain, nausea, diarrhea Genitourinary: denies: urgency, dysuria, discharge Musculoskeletal: denies: back pain, joint swelling, arthralgia Skin: denies: rash, lesions Neurological: headache. 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), PE (2018) - Surgical History Past Surgical History?: Yes Additional Surgical History: C section - Social History Smoking Status: Current Every Day Smoker - Medications Home Medications: Home Medications Medication Instructions Recorded Confirmed Last Taken Type HYDROcodone/APAP 10-325 [[place] 1 each PO Q6HR PRN #20 tablet 12/16/17 11/19/18 Unknown Rx 10/325] Promethazine [Phenergan TAB] 25 mg PO Q6HR PRN #20 tab 12/16/17 11/19/18 Unknown Rx Ibuprofen [Motrin 400 MG tab] 400 mg PO Q8H PRN #20 tablet 12/04/18 Unknown Rx Butalb/Acetaminophen/Caffeine 1 cap PO Q8HR PRN #15 cap 12/17/18 Unknown Rx [Fioricet 50-300-40 mg CAP] ED Physical Exam - General Limitations: No Limitations General appearance: alert, in no apparent distress - Head Head exam: Present: atraumatic, normocephalic - Eye Eye exam: Present: normal appearance, PERRL, EOMI Pupils: Present: normal accommodation, other (negative funduscopic examination. No nystagmus.) - ENT ENT exam: Present: normal exam, normal orophraynx, mucous membranes moist, TM's normal bilaterally - Neck Neck exam: Present: normal inspection, tenderness, other (Spurling's test is is negative) - Respiratory Respiratory exam: Present: normal lung sounds bilaterally. Absent: respiratory distress, wheezes, rales, chest wall tenderness, accessory muscle use, prolonged expiratory - Cardiovascular Cardiovascular Exam: Present: regular rate, normal rhythm. Absent: systolic murmur, diastolic murmur, rubs, gallop - GI/Abdominal GI/Abdominal exam: Present: soft, normal bowel sounds - Extremities Exam Extremities exam: Present: normal inspection - Back Exam Back exam: Present: normal inspection - Neurological Exam Neurological exam: Present: alert, oriented X3, CN II-XII intact, normal gait - Psychiatric Psychiatric exam: Present: normal affect, normal mood - Skin Skin exam: Present: warm, dry, intact, normal color. Absent: rash ED Course Vital Signs 12/17/18 15:34 Temperature 98.5 F Pulse Rate 97 H Respiratory 16 Rate Blood Pressure 124/82 O2 Sat by Pulse 98 Oximetry Critical care attestation.: If time is entered above; I have spent that time in minutes in the direct care of this critically ill patient, excluding procedure time. ED Disposition Clinical Impression: Cephalgia, Migraine Disposition: DC-01 TO HOME OR SELFCARE Is pt being admited?: No Does the pt Need Aspirin: No Condition: Stable Instructions: Ibuprofen (By mouth), Acute Headache (ED), Migraine Headache (ED), Cluster Headache (ED) Prescriptions: Butalb/Acetaminophen/Caffeine [Fioricet 50-300-40 mg CAP] 1 cap PO Q8HR PRN #15 cap PRN Reason: Headache Referrals: KASANDRA PARK MD [Primary Care Provider] - 3-5 Days
[2018-12-17] MEDS ORDERED: FIORICET ONE (20:10)
== END 2018-12-17 20:15 | disposition home or self-care (01) ==
LOC: ED 15:23
DX: G43.909 Migraine, unspecified, not intractable, without status migrainosus (principal); I10 Essential (primary) hypertension; F17.200 Nicotine dependence, unspecified, uncomplicated; Z86.711 Personal history of pulmonary embolism; Z88.5 Allergy status to narcotic agent; Z88.8 Allergy status to other drugs, medicaments and biological substances
CPT/HCPCS: 96374; 96375; 99283; J1100; J1200; J2765; J7030

== ENCOUNTER 2018-12-26 22:19 | Emergency (ER) | payer MEDICARE ==
--- NOTE | 2018-12-26 22:26 | Emergency Department Report ---
Blank Doc - Documentation Documentation: This is a 43-year-old female that presents with generlized body aches. HX of sickle cell. This initial assessment/diagnostic orders/clinical plan/treatment(s) is/are subject to change based on patient's health status, clinical progression and re- assessment by fellow clinical providers in the ED. Further treatment and workup at subsequent clinical providers discretion. Patient/guardians urged not to elope from the ED as their condition may be serious if not clinically assessed and managed. Initial orders include: 1- Patient sent to MAIN ED for further evaluation and treatment 2- labs
--- NOTE | 2018-12-26 22:50 | Emergency Department Report ---
ED General Adult HPI - General Chief complaint: Sickle Cell Crisis Stated complaint: SICKLE CELL CRISIS Time Seen by Provider: 12/26/18 22:25 Source: patient Mode of arrival: Ambulatory Limitations: No Limitations - History of Present Illness Initial comments: 43-year-old female with a history of sickle cell anemia presents with a sickle cell crisis. Patient complains of back pain as well as lower extremity pain. Patient denies any chest pain or shortness of breath. Patient states that she is compliant with her MS Contin 30 therapy but this is not controlling her pain currently. - Related Data Previous Rx's Medication Instructions Recorded Last Taken Type HYDROcodone/APAP 10-325 [[place] 1 each PO Q6HR PRN #20 tablet 12/16/17 Unknown Rx 10/325] Promethazine [Phenergan TAB] 25 mg PO Q6HR PRN #20 tab 12/16/17 Unknown Rx Ibuprofen [Motrin 400 MG tab] 400 mg PO Q8H PRN #20 tablet 12/04/18 Unknown Rx Butalb/Acetaminophen/Caffeine 1 cap PO Q8HR PRN #15 cap 12/17/18 Unknown Rx [Fioricet 50-300-40 mg CAP] Allergies Allergy/AdvReac Type Severity Reaction Status Date / Time aztreonam [From Azactam] Allergy Anaphylaxis Verified 12/17/18 15:26 butorphanol [From Stadol] Allergy Hives Verified 12/17/18 15:26 fentanyl Allergy Unknown Verified 12/17/18 15:26 ketorolac [From Toradol] Allergy Hives Verified 12/17/18 15:26 meperidine [From Demerol] Allergy Unknown Verified 12/17/18 15:26 prochlorperazine Allergy Hives Verified 12/17/18 15:26 [From Compazine] ED Review of Systems ROS: Stated complaint: SICKLE CELL CRISIS Other details as noted in HPI Constitutional: denies: chills, fever Eyes: denies: eye pain, eye discharge, vision change ENT: denies: ear pain, throat pain Respiratory: denies: cough, shortness of breath, wheezing Cardiovascular: denies: chest pain, palpitations Endocrine: no symptoms reported Gastrointestinal: denies: abdominal pain, nausea, diarrhea Genitourinary: denies: urgency, dysuria, discharge Musculoskeletal: back pain, myalgia Skin: denies: rash, lesions Neurological: denies: headache, weakness, paresthesias Psychiatric: denies: anxiety, depression Hematological/Lymphatic: denies: easy bleeding, easy bruising ED Past Medical Hx - Past Medical History Previous Medical History?: Yes Hx Hypertension: Yes Hx Sickle Cell Disease: Yes Additional medical history: 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), PE (2018) - Surgical History Past Surgical History?: Yes Additional Surgical History: C section - Social History Smoking Status: Current Every Day Smoker Substance Use Type: None - Medications Home Medications: Home Medications Medication Instructions Recorded Confirmed Last Taken Type HYDROcodone/APAP 10-325 [[place] 1 each PO Q6HR PRN #20 tablet 12/16/17 11/19/18 Unknown Rx 10/325] Promethazine [Phenergan TAB] 25 mg PO Q6HR PRN #20 tab 12/16/17 11/19/18 Unknown Rx Ibuprofen [Motrin 400 MG tab] 400 mg PO Q8H PRN #20 tablet 12/04/18 Unknown Rx Butalb/Acetaminophen/Caffeine 1 cap PO Q8HR PRN #15 cap 12/17/18 Unknown Rx [Fioricet 50-300-40 mg CAP] ED Physical Exam - General Limitations: No Limitations General appearance: alert, other (uncomfortable; awake) - Head Head exam: Present: atraumatic, normocephalic - Eye Eye exam: Present: normal appearance - ENT ENT exam: Present: mucous membranes moist - Neck Neck exam: Present: normal inspection - Respiratory Respiratory exam: Present: normal lung sounds bilaterally. Absent: respiratory distress - Cardiovascular Cardiovascular Exam: Present: regular rate, normal rhythm. Absent: systolic murmur, diastolic murmur, rubs, gallop - GI/Abdominal GI/Abdominal exam: Present: soft, normal bowel sounds - Extremities Exam Extremities exam: Present: normal inspection - Back Exam Back exam: Present: normal inspection - Neurological Exam Neurological exam: Present: alert, oriented X3 - Psychiatric Psychiatric exam: Present: normal affect, normal mood - Skin Skin exam: Present: warm, dry, intact, normal color. Absent: rash ED Course Vital Signs 12/26/18 12/26/18 12/26/18 22:23 23:11 23:53 Temperature 98.4 F 97.8 F Pulse Rate 75 73 72 Respiratory 16 18 15 Rate Blood Pressure 124/88 Blood Pressure 119/81 159/94 [Right] O2 Sat by Pulse 97 98 99 Oximetry ED Medical Decision Making - Lab Data Result diagrams: 12/26/18 23:15 12/26/18 23:15 - Medical Decision Making Patient improved status post receiving 2 rounds of 6 mg of morphine for pain while in emergency department. Patient to be discharged to follow-up with her rn clinical coordinator Dr. Sanders as an outpatient. - Differential Diagnosis Sickle Cell Pain crisis; Sickle Cell anemia; Deydhration; Anemia Critical care attestation.: If time is entered above; I have spent that time in minutes in the direct care of this critically ill patient, excluding procedure time. ED Disposition Clinical Impression: Sickle cell anemia, Sickle cell crisis Disposition: DC-01 TO HOME OR SELFCARE Is pt being admited?: No Condition: Stable Instructions: Sickle Cell Crisis (ED) Referrals: GUILLERMO LANDRUM MD [Primary Care Provider] - 3-5 Days Time of Disposition: 00:44 Print Language: PERUVIAN
[2018-12-26 23:28] LABS: Hematocrit 23.4 % (30.3-42.9); Mean Corpuscular HGB Conc 34 % (30-34); Mean Corpuscular Volume 86 fl (79-97); Platelet Count 402 K/mm3 (140-440); Red Blood Count 2.72 M/mm3 (3.65-5.03)
[2018-12-26] MEDS ORDERED: MORPHINE IV ONE (23:34)
[2018-12-26] MEDS ORDERED: ZOFRAN IV ONE (23:35)
[2018-12-26] MEDS ORDERED: BENADRYL IV ONE (23:36)
[2018-12-26 23:39] LABS: Red Cell Distribution Width 22.7 % (13.2-15.2)
[2018-12-26 23:44] LABS: BUN/Creatinine Ratio 18; Blood Urea Nitrogen 9 mg/dL (7-17); Calcium 8.6 mg/dL (8.4-10.2); Hemolysis Index 7
[2018-12-26] MEDS ORDERED: NACL 0.9% 1000 ML 1,000 ML IV ONE (23:56)
[2018-12-27] MEDS ORDERED: MORPHINE IV ONE (00:24)
[2018-12-27 00:55] VITALS: BP 152/92
[2018-12-27 03:49] LABS: Anisocytosis 1+; Basophils % (Manual) 0 % (0.0-1.8); Total Cells Counted 100
[2018-12-27 03:50] LABS: Poikilocytosis 2+; Sickle Cells Few
[2018-12-27 03:51] LABS: Ovalocytes Few; Platelet Estimate Consistent w Auto; Schistocytes Few; Target Cells 1+
== END 2018-12-27 00:55 | disposition home or self-care (01) ==
LOC: ED 22:19
DX: D57.00 Hb-SS disease with crisis, unspecified (principal); I10 Essential (primary) hypertension; F17.200 Nicotine dependence, unspecified, uncomplicated; Z88.5 Allergy status to narcotic agent; Z88.8 Allergy status to other drugs, medicaments and biological substances; Z79.1 Long term (current) use of non-steroidal anti-inflammatories (NSAID); Z86.711 Personal history of pulmonary embolism
CPT/HCPCS: 36415; 80048; 85007; 85025; 85045; 96374; 96375; 96376; 99283; J1200; J2270; J2405; J7030

== ENCOUNTER 2018-12-27 06:32 | Inpatient (IN) | payer MEDICARE ==
[2018-12-27] MEDS ORDERED: NACL 0.9% 1000 ML 1,000 ML IV ONE (07:25)
[2018-12-27] MEDS ORDERED: DILAUDID IV ONE ×3 (07:25→10:55)
--- NOTE | 2018-12-27 07:26 | Emergency Department Report ---
ED General Adult HPI - General Chief complaint: Sickle Cell Crisis Stated complaint: SICLE CELL CRISIS Time Seen by Provider: 12/27/18 07:20 Source: patient Mode of arrival: Ambulatory Limitations: No Limitations - History of Present Illness Initial comments: Patient is a 43-year-old female that presents to emergency room with worsening sickle cell symptoms. Patient states she's had pain in her back and legs. Patient states she was here yesterday and symptoms have not improved. Patient states she was discharged home but the pain medications are not working. Patient states the pain is a 10 on a Phen-Fen. Patient states the pain is worse. Patient states the pain is not radiating. Patient states the pain is in her back and legs. Patient states the pain is better with rest and worse with movement. -: Sudden Location: back, lower extremity Radiation: non-radiation Severity scale (0 -10): 10 Quality: stabbing Improves with: rest Worsens with: movement Associated Symptoms: denies other symptoms. denies: confusion, chest pain, cough, diaphoresis, fever/chills, headaches, loss of appetite, malaise, nausea/vomiting, rash, seizure, shortness of breath, syncope, weakness - Related Data Allergies Allergy/AdvReac Type Severity Reaction Status Date / Time aztreonam [From Azactam] Allergy Anaphylaxis Verified 12/17/18 15:26 butorphanol [From Stadol] Allergy Hives Verified 12/17/18 15:26 fentanyl Allergy Unknown Verified 12/17/18 15:26 ketorolac [From Toradol] Allergy Hives Verified 12/17/18 15:26 meperidine [From Demerol] Allergy Unknown Verified 12/17/18 15:26 prochlorperazine Allergy Hives Verified 12/17/18 15:26 [From Compazine] ED Review of Systems ROS: Stated complaint: SICLE CELL CRISIS Other details as noted in HPI Constitutional: denies: chills, fever Eyes: denies: eye pain, eye discharge, vision change ENT: denies: ear pain, throat pain Respiratory: denies: cough, shortness of breath, wheezing Cardiovascular: denies: chest pain, palpitations Endocrine: no symptoms reported Gastrointestinal: denies: abdominal pain, nausea, diarrhea Genitourinary: denies: urgency, dysuria, discharge Musculoskeletal: back pain, arthralgia, myalgia. denies: joint swelling Skin: denies: rash, lesions Neurological: denies: headache, weakness, paresthesias Psychiatric: denies: anxiety, depression Hematological/Lymphatic: denies: easy bleeding, easy bruising ED Past Medical Hx - Past Medical History Previous Medical History?: Yes Hx Hypertension: Yes Hx Sickle Cell Disease: Yes Additional medical history: 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), PE (2018) - Surgical History Past Surgical History?: Yes Additional Surgical History: C section - Family History Family history: no significant - Social History Smoking Status: Current Every Day Smoker Substance Use Type: None ED Physical Exam - General Limitations: No Limitations General appearance: alert, in no apparent distress - Head Head exam: Present: atraumatic, normocephalic - Eye Eye exam: Present: normal appearance - ENT ENT exam: Present: mucous membranes moist - Neck Neck exam: Present: normal inspection - Respiratory Respiratory exam: Present: normal lung sounds bilaterally. Absent: respiratory distress, wheezes, rales, rhonchi - Cardiovascular Cardiovascular Exam: Present: regular rate, normal rhythm. Absent: systolic murmur, diastolic murmur, rubs, gallop - GI/Abdominal GI/Abdominal exam: Present: soft, normal bowel sounds. Absent: distended, tenderness, guarding - Rectal Rectal exam: Present: deferred - Extremities Exam Extremities exam: Present: normal inspection - Back Exam Back exam: Present: normal inspection - Neurological Exam Neurological exam: Present: alert, oriented X3 - Psychiatric Psychiatric exam: Present: normal affect, normal mood - Skin Skin exam: Present: warm, dry, intact, normal color. Absent: rash ED Course Vital Signs 12/27/18 12/27/18 12/27/18 06:41 07:46 08:01 Temperature 98.3 F Pulse Rate 18 L 65 71 Respiratory 18 9 L 8 L Rate Blood Pressure 110/76 O2 Sat by Pulse 96 100 98 Oximetry 12/27/18 12/27/18 08:07 09:09 Temperature Pulse Rate 70 Respiratory 15 Rate Blood Pressure 126/80 O2 Sat by Pulse 98 Oximetry - Reevaluation(s) Reevaluation #1: Discussed all results with patient. Patient will be admitted to the hospitalist service. Patient agrees to plan of care. Patient is still complaining of severe pain. 12/27/18 09:03 - Consultations Consultation #1: Hospitalist consulted for admission. Hospitalist to admit patient. Hospitalist to assume care patient. 12/27/18 09:06 ED Medical Decision Making - Lab Data Result diagrams: 12/27/18 07:54 12/27/18 07:54 - Medical Decision Making Patient is a 43-year-old female with abscess emergency room with complaints of sickle cell pain. Patient was here in night previous and was discharged home with oral pain meds however the patient's pain did not respond well at home. Patient return to the ER and was given multiple medications. Patient will be admitted to the hospitalist service for observation and pain management and fu rther evaluation. Patient is being admitted since she failed outpatient treatment. All labs reviewed and shows elevated reticular count. - Differential Diagnosis sickle cell pain. Sickle cell crisis Critical Care Time: Yes Critical care attestation.: If time is entered above; I have spent that time in minutes in the direct care of this critically ill patient, excluding procedure time. Critical Care Time: 35 minutes ED Disposition Clinical Impression: Sickle cell crisis Sickle cell anemia Qualifiers: Sickle-cell associated disorders: with unspecified crisis Qualified Code(s): D57.00 - Hb-SS disease with crisis, unspecified Disposition: DC-09 OP ADMIT IP TO THIS HOSP Is pt being admited?: Yes Does the pt Need Aspirin: No Condition: Critical Time of Disposition: 09:02
[2018-12-27 08:29] LABS: Hematocrit 23.4 % (30.3-42.9); Mean Corpuscular HGB Conc 34 % (30-34); Mean Corpuscular Volume 84 fl (79-97); Platelet Count 388 K/mm3 (140-440); Red Blood Count 2.79 M/mm3 (3.65-5.03)
[2018-12-27 08:30] LABS: Red Cell Distribution Width 22.4 % (13.2-15.2)
[2018-12-27 08:33] LABS: Alanine Aminotransferase 12 units/L (7-56); Albumin 3.2 g/dL (3.9-5); BUN/Creatinine Ratio 12; Blood Urea Nitrogen 7 mg/dL (7-17); Calcium 8.4 mg/dL (8.4-10.2); Hemolysis Index 14
[2018-12-27 09:13] LABS: Basophils % (Manual) 0 % (0.0-1.8); Total Cells Counted 100
[2018-12-27 09:14] LABS: Anisocytosis 1+; Poikilocytosis 3+; Sickle Cells Few
[2018-12-27 09:15] LABS: Spherocytes Few; Target Cells 2+
[2018-12-27 09:16] LABS: Ovalocytes Few; Platelet Estimate Consistent w Auto; Schistocytes Few; Tear Drop Cells Rare
[2018-12-27] MEDS ORDERED: DILAUDID ONE (10:53)
--- NOTE | 2018-12-27 11:41 | History and Physical Report ---
History of Present Illness Date of examination: 12/27/18 Date of admission: 12/27/18 09:11 History of present illness: 43-year-old female patient with significant past medical history of sickle cell disease presented to the emergency room with worsening back legs and body pains Patient states she was here yesterday and symptoms have not improved. Patient reports that pain medications are not helping working. Patient denies any nausea vomiting abdominal pain, Denies fever or urinary symptoms, denies shortness of breath or palpitations Past History Past Medical History: anemia (sickle cell anemia), pulmonary embolism, other (sickle cell disease, avascular necrosis) Past Surgical History: , Other (avascular necrosis status post surgery) Social history: smoking. denies: alcohol abuse, prescription drug abuse Family history: hypertension Medications and Allergies Allergies Allergy/AdvReac Type Severity Reaction Status Date / Time aztreonam [From Azactam] Allergy Anaphylaxis Verified 12/17/18 15:26 butorphanol [From Stadol] Allergy Hives Verified 12/17/18 15:26 fentanyl Allergy Unknown Verified 12/17/18 15:26 ketorolac [From Toradol] Allergy Hives Verified 12/17/18 15:26 meperidine [From Demerol] Allergy Unknown Verified 12/17/18 15:26 prochlorperazine Allergy Hives Verified 12/17/18 15:26 [From Compazine] Review of Systems Constitutional: no weight loss, no weight gain, no fever, no chills Ears, nose, mouth and throat: no nasal congestion, no nasal discharge Cardiovascular: chest pain, no orthopnea, no palpitations, no lightheadedness Respiratory: no cough, no shortness of breath Gastrointestinal: no abdominal pain, no nausea, no vomiting Musculoskeletal: low back pain, myalgias, arthritis Integumentary: no rash, no lesions Neurological: no paralysis, no weakness, no seizures Psychiatric: no anxiety, no depression Endocrine: no cold intolerance, no heat intolerance Hematologic/Lymphatic: no easy bruising, no easy bleeding Allergic/Immunologic: no urticaria, no allergic rhinitis Exam - Constitutional Vitals: Temp Pulse Resp BP Pulse Ox 98.3 F 70 15 126/80 98 12/27/18 06:41 12/27/18 09:09 12/27/18 09:09 12/27/18 09:09 12/27/18 08:07 General appearance: Present: no acute distress, well-nourished - EENT Eyes: Present: PERRL, EOM intact - Neck Neck: Present: supple, normal ROM - Respiratory Respiratory effort: normal Respiratory: negative: rales, rhonchi, wheezing - Cardiovascular Rhythm: regular Heart Sounds: Present: S1 & S2 - Extremities Extremities: no ischemia, No edema - Abdominal General gastrointestinal: Present: soft, non-tender, non-distended, normal bowel sounds - Integumentary Integumentary: Present: clear, warm - Musculoskeletal Musculoskeletal: strength equal bilaterally - Psychiatric Psychiatric: appropriate mood/affect, cooperative - Neurologic Neurologic: CNII-XII intact, moves all extremities Results - Labs CBC & Chem 7: 12/27/18 07:54 12/27/18 07:54 Labs: Abnormal lab results 12/27/18 12/27/18 Range/Units 07:54 07:54 RBC 2.79 L (3.65-5.03) M/mm3 Hgb 8.0 L (10.1-14.3) gm/dl Hct 23.4 L (30.3-42.9) % RDW 22.4 H (13.2-15.2) % Monocytes % (Manual) 10.0 H (0.0-7.3) % Eosinophils % (Manual) 10.0 H (0.0-4.3) % Nucleated RBC % 1.0 H (0.0-0.9) % Eosinophils # (Manual) 0.7 H (0.0-0.4) K/mm3 Percent Retic 5.02 H (0.78-2.58) % Carbon Dioxide 20 L (22-30) mmol/L Creatinine 0.6 L (0.7-1.2) mg/dL Albumin 3.2 L (3.9-5) g/dL Assessment and Plan --Sickle cell, painful crisis; IV hydration, pain medications, supportive care --Sickle cell anemia; monitor H&H Transfuse as needed --Voho-uc-rdievnwl malnutrition and hypoalbuminemia Nutrition supplements and supportive care --Avascular necrosis; status post surgery Supportive care --Ongoing tobacco use; smoking cessation Nicotine patch as needed --DVT Prophylaxis; Lovenox Monitor closely and adjust management as needed Possible discharge in 1-2 days if stable Patient needs to see her guest services director upon discharge Plan of care is reviewed for the patient and her nurse
[2018-12-27] MEDS ORDERED: ZOFRAN IV PRN (11:44)
[2018-12-27] MEDS ORDERED: DULCOLAX PR PRN (11:44)
[2018-12-27] MEDS ORDERED: MILK OF MAGNESIA PO PRN (11:44)
[2018-12-27] MEDS ORDERED: NARCAN 0.4 MG/1 ML IV PRN (11:44)
[2018-12-27] MEDS ORDERED: D5/0.45NS 1,000 ML IV SCH (12:00)
[2018-12-27] MEDS: BENADRYL PO PRN ×2 (13:47→21:29)
[2018-12-27] MEDS: DILAUDID IV PRN ×3 (13:47→21:29)
[2018-12-27] MEDS ORDERED: XANAX PO PRN (14:00)
[2018-12-27] MEDS ORDERED: NACL 0.9% 1000 ML 1,000 ML IV SCH (21:00)
[2018-12-27] MEDS ORDERED: SENOKOT PO SCH (22:00)
[2018-12-28] MEDS: DILAUDID IV PRN ×5 (01:34→17:25)
[2018-12-28 06:14] LABS: Hematocrit 23.3 % (30.3-42.9); Hemoglobin 7.9 gm/dl (10.1-14.3); Mean Corpuscular HGB Conc 34 % (30-34); Mean Corpuscular Volume 86 fl (79-97); Platelet Count 423 K/mm3 (140-440)
[2018-12-28 06:17] LABS: Red Cell Distribution Width 22.5 % (13.2-15.2)
[2018-12-28 09:52] LABS: Basophils # (Auto) 0.3 K/mm3 (0.0-0.1); Eosinophils # (Auto) 0.7 K/mm3 (0.0-0.4); Monocytes # (Auto) 0.9 K/mm3 (0.0-0.8); Monocytes % (Auto) 9.9 % (0.0-7.3)
[2018-12-28] MEDS ORDERED: THERAGRAN Tab PO SCH (10:00)
[2018-12-28] MEDS ORDERED: FOLVITE PO SCH (10:00)
[2018-12-28 10:05] LABS: Basophils % (Manual) 0 % (0.0-1.8); Total Cells Counted 100
[2018-12-28 10:07] LABS: Sickle Cells Few; Target Cells 2+
[2018-12-28 10:08] LABS: Large Platelets Few; Platelet Estimate Consistent w Auto
--- NOTE | 2018-12-28 17:33 | Discharge Summary ---
Providers - Providers Date of Admission: 12/27/18 09:11 Date of discharge: 12/28/18 Attending physician: YEIMY KRISHNA Hospitalization Reason for admission: worsening back and body pains/sickle cell crisis Condition: Stable Hospital course: 43-year-old female patient with significant past medical history of sickle cell disease presented to the emergency room with worsening back legs and body pains Patient states she was here yesterday and symptoms have not improved. Patient reports that pain medications are not helping working. Patient denies any nausea vomiting abdominal pain, Denies fever or urinary symptoms, denies shortness of breath or palpitations Admitted to the hospital symptomatically managed with IV fluids pain medications and supportive care The patient is closely monitored Symptoms significantly improved today patient is comfortable pneumonia complaints vital signs stable Physical examination is unremarkable Patient has all the pain medications at home Patient has follow-up with private shoe coverer Patient is hemodynamically and clinically stable at discharge Advised smoking cessation and nicotine patch as needed Discharge diagnosis; --Sickle cell, painful crisis; IV hydration, pain medications, supportive care --Sickle cell anemia; monitor H&H Transfuse as needed --[id number] malnutrition and hypoalbuminemia Nutrition supplements and supportive care --Avascular necrosis; status post surgery Supportive care --Ongoing tobacco use; smoking cessation Nicotine patch as needed --DVT Prophylaxis; Lovenox Disposition: DC- TO HOME OR SELFCARE Time spent for discharge: 32 min Core Measure Documentation - Palliative Care Palliative Care/ Comfort Measures: Not Applicable - Core Measures Any of the following diagnoses?: none Exam - Constitutional Vitals: Temp Pulse Resp BP Pulse Ox 98.5 F 66 20 147/93 98 12/28/18 11:38 12/28/18 11:38 12/28/18 11:38 12/28/18 11:38 12/28/18 11:38 General appearance: Present: no acute distress, well-nourished - EENT Eyes: Present: PERRL, EOM intact - Neck Neck: Present: supple, normal ROM - Respiratory Respiratory effort: normal Respiratory: bilateral: diminished, negative: rales, rhonchi, wheezing - Cardiovascular Rhythm: regular Heart Sounds: Present: S1 & S2 - Extremities Extremities: no ischemia, No edema - Abdominal General gastrointestinal: Present: soft, non-tender, non-distended, normal bowel sounds - Integumentary Integumentary: Present: clear, warm - Musculoskeletal Musculoskeletal: strength equal bilaterally, generalized weakness - Psychiatric Psychiatric: appropriate mood/affect, cooperative - Neurologic Neurologic: CNII-XII intact, moves all extremities Plan Activity: advance as tolerated Diet: regular Special Instructions: smoking cessation Additional Instructions: Follow-up private shoe coverer in 1 week. Advised to continue pain medications as before Follow up with: JOVANI JOHNSON [Other] - 3-5 Days Prescriptions: Folic Acid [Folvite] 1 mg PO QDAY #30 tablet Nicotine [Habitrol] 14 mg TD DAILY #30 patch Amlodipine Besylate [Norvasc] 10 mg PO DAILY 30 Days tablet
[2018-12-28 18:42] VITALS: BP 149/91
== END 2018-12-28 19:35 | disposition home or self-care (01) | DRG 812 ==
LOC: ED 06:32 → 3A 09:11
PROVIDERS: ADMIT Internal Medicine; ATTEND Internal Medicine
DX: D57.00 Hb-SS disease with crisis, unspecified (principal); E44.0 Moderate protein-calorie malnutrition; I10 Essential (primary) hypertension; F17.200 Nicotine dependence, unspecified, uncomplicated; E88.09 Other disorders of plasma-protein metabolism, not elsewhere classified; Z88.6 Allergy status to analgesic agent; Z88.8 Allergy status to other drugs, medicaments and biological substances; Z68.26 Body mass index [BMI] 26.0-26.9, adult; Z86.711 Personal history of pulmonary embolism; Z82.49 Family history of ischemic heart disease and other diseases of the circulatory system; Z71.6 Tobacco abuse counseling
CPT/HCPCS: 36415; 80053; 85007; 85025; 85045; 87116; 96361; 96374; 96375; 96376; G0378; J1170; J7030

== ENCOUNTER 2018-12-29 02:09 | Emergency (ER) | payer MEDICARE ==
[2018-12-29 06:17] VITALS: BP 134/63
== END 2018-12-29 03:00 | disposition left against medical advice (07) ==
LOC: ED 02:09
DX: M54.9 Dorsalgia, unspecified (principal); Z53.21 Procedure and treatment not carried out due to patient leaving prior to being seen by health care provider

== ENCOUNTER 2019-01-02 03:12 | Emergency (ER) | payer MEDICARE ==
[2019-01-02 03:59] VITALS: BP 117/69
[2019-01-02 04:06] LABS: Hematocrit 27.3 % (30.3-42.9); Hemoglobin 9.3 gm/dl (10.1-14.3); Mean Corpuscular HGB Conc 34 % (30-34); Mean Corpuscular Volume 87 fl (79-97); Platelet Count 409 K/mm3 (140-440); Red Blood Count 3.12 M/mm3 (3.65-5.03)
[2019-01-02 04:16] LABS: Red Cell Distribution Width 25.4 % (13.2-15.2)
[2019-01-02 04:26] LABS: BUN/Creatinine Ratio 21; Blood Urea Nitrogen 15 mg/dL (7-17); Calcium 8.5 mg/dL (8.4-10.2); Hemolysis Index 8
[2019-01-02] MEDS ORDERED: ZOFRAN IV ONE (04:27)
[2019-01-02] MEDS ORDERED: MORPHINE IV ONE (04:27)
--- NOTE | 2019-01-02 04:32 | Emergency Department Report ---
HPI - General Chief Complaint: Sickle Cell Crisis Time Seen by Provider: 01/02/19 03:32 - HPI HPI: 43-year-old female with history of sickle cell, presents to ED with chest pain, back pain, but no fever chills or night sweats. Denies any shortness of breath. Rates pain as mild in severity, 3 out of 10, sharp. ED Past Medical Hx - Past Medical History Previous Medical History?: Yes Hx Hypertension: Yes Hx Sickle Cell Disease: Yes Additional medical history: 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), PE (2018) - Surgical History Past Surgical History?: Yes Additional Surgical History: C section - Social History Smoking Status: Never Smoker Substance Use Type: None - Medications Home Medications: Home Medications Medication Instructions Recorded Confirmed Last Taken Type Amlodipine Besylate [Norvasc] 10 mg PO DAILY 30 Days tablet 12/28/18 Unknown Rx Folic Acid [Folvite] 1 mg PO QDAY #30 tablet 12/28/18 Unknown Rx Nicotine [Habitrol] 14 mg TD DAILY #30 patch 12/28/18 Unknown Rx Promethazine [Phenergan] 25 mg PO Q6HR PRN #30 tab 01/04/19 Unknown Rx ED Review of Systems ROS: Stated complaint: SICKLE CELL CRISIS Other details as noted in HPI Comment: All other systems reviewed and negative Constitutional: no symptoms reported ENT: denies: ear pain Respiratory: denies: cough Cardiovascular: denies: chest pain Genitourinary: denies: urgency, dysuria Musculoskeletal: back pain, myalgia Physical Exam - Physical Exam Vital Signs: Vital Signs 01/02/19 01/02/19 03:14 03:56 Temperature 98.3 F 98.3 F Pulse Rate 66 64 Respiratory 18 13 Rate Blood Pressure 112/78 Blood Pressure 117/69 [Left] O2 Sat by Pulse 100 98 Oximetry Physical Exam: ED Physical Exam - General Limitations: No Limitations General appearance: alert, in no apparent distress - Head Head exam: Present: atraumatic, normocephalic - Eye Eye exam: Present: normal appearance, PERRL, EOMI Pupils: Present: normal accommodation - ENT ENT exam: Present: normal exam - Neck Neck exam: Present: normal inspection - Respiratory Respiratory exam: Present: normal lung sounds bilaterally - Cardiovascular Cardiovascular Exam: Present: regular rate, normal rhythm - GI/Abdominal GI/Abdominal exam: Present: soft, normal bowel sounds - Rectal Rectal exam: Present: deferred - Extremities Exam Extremities exam: Present: normal inspection, full ROM - Back Exam Back exam: Present: normal inspection - Neurological Exam Neurological exam: Present: alert, oriented X3, CN II-XII intact - Psychiatric Psychiatric exam: Present: normal affect, normal mood - Skin Skin exam: Present: warm ED Course Vital Signs 01/02/19 01/02/19 03:14 03:56 Temperature 98.3 F 98.3 F Pulse Rate 66 64 Respiratory 18 13 Rate Blood Pressure 112/78 Blood Pressure 117/69 [Left] O2 Sat by Pulse 100 98 Oximetry ED Medical Decision Making - Lab Data Result diagrams: 01/02/19 03:47 01/02/19 03:47 Critical care attestation.: If time is entered above; I have spent that time in minutes in the direct care of this critically ill patient, excluding procedure time. ED Disposition Clinical Impression: Sickle cell anemia Qualifiers: Sickle-cell associated disorders: without crisis Qualified Code(s): D57.1 - Sickle-cell disease without crisis Disposition: DC-01 TO HOME OR SELFCARE Is pt being admited?: No Does the pt Need Aspirin: No Condition: Stable Referrals: KASANDRA PARK MD [Primary Care Provider] - 3-5 Days
[2019-01-02 05:20] LABS: Basophils % (Manual) 0 % (0.0-1.8); Target Cells 2+; Total Cells Counted 100
[2019-01-02 05:22] LABS: Large Platelets 1+; Platelet Estimate Consistent w Auto
== END 2019-01-02 04:41 | disposition home or self-care (01) ==
LOC: ED 03:12
DX: D57.1 Sickle-cell disease without crisis (principal); R07.89 Other chest pain; M54.9 Dorsalgia, unspecified; I10 Essential (primary) hypertension; Z86.711 Personal history of pulmonary embolism; Z79.899 Other long term (current) drug therapy; Z88.5 Allergy status to narcotic agent; Z88.8 Allergy status to other drugs, medicaments and biological substances
CPT/HCPCS: 36415; 80048; 84484; 84703; 85007; 85025; 85045; 93005; 93010; 96374; 96375; 99284; J2270; J2405

== ENCOUNTER 2019-01-04 08:34 | Emergency (ER) | payer MEDICARE ==
[2019-01-04] MEDS ORDERED: ZOFRAN IV ONE (09:32)
[2019-01-04] MEDS ORDERED: DILAUDID IV ONE ×4 (09:32→12:21)
--- NOTE | 2019-01-04 09:38 | Emergency Department Report ---
ED General Adult HPI - General Chief complaint: Sickle Cell Crisis Stated complaint: SICKLE CELL Time Seen by Provider: 01/04/19 09:04 Source: EMS, old records reviewed Mode of arrival: Stretcher Limitations: No Limitations - History of Present Illness Initial comments: 43-year-old female with a past medical history sickle cell anemia and avascular necrosis of her bilateral shoulders and left hip presents to the hospital requesting pain medication secondary to sickle cell crisis. Patient has had lower back pain for the past 2 days. She denies fever, leg weakness, leg numbness, or urinary incontinence. Symptoms are typical of previous sickle cell crises. Upon medical record review patient has frequent visits here to the ER for similar symptoms. She was here on November 30, December 03, december 17, December 26 and recently admitted here December 27 until December 28 for sickle cell related pain and also returned to the ed on January 02. She did not require a blood transfusion during her admission. Patient states she does not have any pain medication at home. As per [place] prescription monitoring site on December 19 patient filled a 30 day supply of morphine ER 30 mg and on December 30 a 30 day supply of [place] 10 mg. Patient states she is out of all this medication. When confronted that she should not be out of this medication she gets belligerent and defensive and then admits that she took additional doses due to continued pain. She states she plans to follow up with her cabin cleaning supervisor on Sunday. The cabin cleaning supervisor she is seen by is also the doctor listed on the [place] prescription monitoring site that prescribed these meds. Film Processing Shift Supervisor [place] was associated with [place] cancer specialists. Patient is also flagged by the [place] prescription monitor. Patient initially refused blood draw stating that she just wanted pain medication. Patient informed that she we would need blood draw to evaluate for anemia and infection given her complaint of back pain secondary to crisis. No complaints of chest pain, shortness of breath, or fever. - Related Data Previous Rx's Medication Instructions Recorded Last Taken Type Amlodipine Besylate [Norvasc] 10 mg PO DAILY 30 Days tablet 12/28/18 Unknown Rx Folic Acid [Folvite] 1 mg PO QDAY #30 tablet 12/28/18 Unknown Rx Nicotine [Habitrol] 14 mg TD DAILY #30 patch 12/28/18 Unknown Rx Promethazine [Phenergan] 25 mg PO Q6HR PRN #30 tab 01/04/19 Unknown Rx Allergies Allergy/AdvReac Type Severity Reaction Status Date / Time aztreonam [From Azactam] Allergy Anaphylaxis Verified 12/17/18 15:26 butorphanol [From Stadol] Allergy Hives Verified 12/17/18 15:26 fentanyl Allergy Unknown Verified 12/17/18 15:26 ketorolac [From Toradol] Allergy Hives Verified 12/17/18 15:26 meperidine [From Demerol] Allergy Unknown Verified 12/17/18 15:26 prochlorperazine Allergy Hives Verified 12/17/18 15:26 [From Compazine] ED Review of Systems ROS: Stated complaint: SICKLE CELL Other details as noted in HPI Comment: All other systems reviewed and negative ED Past Medical Hx - Past Medical History Hx Hypertension: Yes Hx Sickle Cell Disease: Yes Additional medical history: 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), PE (2018) - Surgical History Additional Surgical History: C section - Social History Smoking Status: Never Smoker - Medications Home Medications: Home Medications Medication Instructions Recorded Confirmed Last Taken Type Amlodipine Besylate [Norvasc] 10 mg PO DAILY 30 Days tablet 12/28/18 Unknown Rx Folic Acid [Folvite] 1 mg PO QDAY #30 tablet 12/28/18 Unknown Rx Nicotine [Habitrol] 14 mg TD DAILY #30 patch 12/28/18 Unknown Rx Promethazine [Phenergan] 25 mg PO Q6HR PRN #30 tab 01/04/19 Unknown Rx ED Physical Exam - General Limitations: No Limitations - Other Other exam information: General: No limitations, patient is alert in no acute distress Head exam: Atraumatic, normocephalic Eyes exam: Normal appearance ENT: Moist mucous membrane Neck exam: Normal inspection, full range of motion, no meningismus nontender Respiratory exam: Clear to auscultation bilateral, no wheezes, rales, crackles Cardiovascular: Normal rate and rhythm, normal heart sounds Abdomen: Soft, nondistended, and nontender, with normal bowel sounds, no r ebound, or guarding Extremity: Full range of motion normal inspection no deformity Back: Normal Inspection, full range of motion, no tenderness Neurologic: Alert, oriented x3, cranial nerves intact, no motor or sensory deficit Psychiatric: normal affect, normal mood Skin: Warm, dry, intact ED Course Vital Signs 01/04/19 01/04/19 01/04/19 08:57 10:40 10:43 Temperature 98.7 F Pulse Rate 90 74 Respiratory 18 17 17 Rate Blood Pressure 122/52 Blood Pressure 122/54 108/63 [Left] O2 Sat by Pulse 100 100 100 Oximetry 01/04/19 11:20 Temperature Pulse Rate 57 L Respiratory 17 Rate Blood Pressure Blood Pressure 108/58 [Left] O2 Sat by Pulse 100 Oximetry ED Medical Decision Making - Lab Data Result diagrams: 01/04/19 Unknown 01/04/19 Unknown Lab Results 01/04/19 01/04/19 01/04/19 Range/Units 11:20 Unknown Unknown WBC 5.9 (4.5-11.0) K/mm3 RBC 3.82 (3.65-5.03) M/mm3 Hgb 11.2 (10.1-14.3) gm/dl Hct 33.2 (30.3-42.9) % MCV 87 (79-97) fl MCH 29 (28-32) pg MCHC 34 (30-34) % RDW 24.5 H (13.2-15.2) % Plt Count 369 (140-440) K/mm3 Baso % (Auto) Rn Lactation Percent Retic 2.81 H (0.78-2.58) % Sodium 136 L (137-145) mmol/L Potassium 4.2 (3.6-5.0) mmol/L Chloride 104.5 (98-107) mmol/L Carbon Dioxide 18 L (22-30) mmol/L Anion Gap 18 mmol/L BUN 12 (7-17) mg/dL Creatinine 0.6 L (0.7-1.2) mg/dL Estimated GFR > 60 ml/min BUN/Creatinine Ratio 20 % Glucose 85 (65-100) mg/dL Calcium 9.0 (8.4-10.2) mg/dL Total Bilirubin 0.40 (0.1-1.2) mg/dL AST 21 (5-40) units/L ALT 11 (7-56) units/L Alkaline Phosphatase 54 (35-129) units/L Total Protein 8.0 (6.3-8.2) g/dL Albumin 3.8 L (3.9-5) g/dL Albumin/Globulin Ratio 0.9 % HCG, Qual (Negative) Urine Color Yellow (Yellow) Urine Turbidity Clear (Clear) Urine pH 6.0 (5.0-7.0) Ur Specific [place] 1.012 (1.003-1.030) Urine Protein <15 mg/dl (Negative) mg/dL Urine Glucose (UA) Neg (Negative) mg/dL Urine Ketones Neg (Negative) mg/dL Urine Blood Neg (Negative) Urine Nitrite Neg (Negative) Urine Bilirubin Neg (Negative) Urine Urobilinogen < 2.0 (<2.0) mg/dL Ur Leukocyte Esterase Neg (Negative) Urine WBC (Auto) 1.0 (0.0-6.0) /HPF Urine RBC (Auto) 2.0 (0.0-6.0) /HPF U Epithel Cells (Auto) 3.0 (0-13.0) /HPF 01/04/19 Range/Units Unknown WBC (4.5-11.0) K/mm3 RBC (3.65-5.03) M/mm3 Hgb (10.1-14.3) gm/dl Hct (30.3-42.9) % MCV (79-97) fl MCH (28-32) pg MCHC (30-34) % RDW (13.2-15.2) % Plt Count (140-440) K/mm3 Baso % (Auto) Percent Retic (0.78-2.58) % Sodium (137-145) mmol/L Potassium (3.6-5.0) mmol/L Chloride (98-107) mmol/L Carbon Dioxide (22-30) mmol/L Anion Gap mmol/L BUN (7-17) mg/dL Creatinine (0.7-1.2) mg/dL Estimated GFR ml/min BUN/Creatinine Ratio % Glucose (65-100) mg/dL Calcium (8.4-10.2) mg/dL Total Bilirubin (0.1-1.2) mg/dL AST (5-40) units/L ALT (7-56) units/L Alkaline Phosphatase (35-129) units/L Total Protein (6.3-8.2) g/dL Albumin (3.9-5) g/dL Albumin/Globulin Ratio % HCG, Qual Negative (Negative) Urine Color (Yellow) Urine Turbidity (Clear) Urine pH (5.0-7.0) Ur Specific [place] (1.003-1.030) Urine Protein (Negative) mg/dL Urine Glucose (UA) (Negative) mg/dL Urine Ketones (Negative) mg/dL Urine Blood (Negative) Urine Nitrite (Negative) Urine Bilirubin (Negative) Urine Urobilinogen (<2.0) mg/dL Ur Leukocyte Esterase (Negative) Urine WBC (Auto) (0.0-6.0) /HPF Urine RBC (Auto) (0.0-6.0) /HPF U Epithel Cells (Auto) (0-13.0) /HPF - Medical Decision Making Patient has improved lab values including a normal hemoglobin and is decreased with the count and normal bilirubin compared to previous visits suggestive of improvement and sickle cell crisis compared to previous visits. I suspect patient is abusing narcotics given that she has completed a months supply of narcotics in a 2 week period. She is requesting Phenergan upon discharge will not provide any additional narcotic prescriptions. - Differential Diagnosis drug seeker, sickle cell pain, chronic pain, infection Critical Care Time: No Critical care attestation.: If time is entered above; I have spent that time in minutes in the direct care of this critically ill patient, excluding procedure time. ED Disposition Clinical Impression: Sickle cell anemia, Narcotic dependence Disposition: DC-01 TO HOME OR SELFCARE Is pt being admited?: No Does the pt Need Aspirin: No Condition: Stable Instructions: Sickle Cell Crisis (ED), Narcotic Pain Management (ED) Additional Instructions: Take the medication as prescribed. Follow up with your doctor or the clinic/doctor provided. Return if symptoms worsen as indicated by your discharge instructions Prescriptions: Promethazine [Phenergan] 25 mg PO Q6HR PRN #30 tab PRN Reason: Nausea Referrals: JOVANI JOHNSON [Other] - 3-5 Days Rocky Sanders [Other] - 2-3 Days (Your cabin cleaning supervisor) Time of Disposition: 12:34
[2019-01-04] MEDS ORDERED: BENADRYL IV ONE (09:49)
[2019-01-04] MEDS ORDERED: D5NS 0.2% 1,000 ML IV SCH (10:00)
[2019-01-04 11:18] LABS: Alanine Aminotransferase 11 units/L (7-56); Albumin 3.8 g/dL (3.9-5); BUN/Creatinine Ratio 20; Blood Urea Nitrogen 12 mg/dL (7-17); Hemolysis Index 4
[2019-01-04 11:21] VITALS: BP 108/58
[2019-01-04 11:27] LABS: Hematocrit 33.2 % (30.3-42.9); Hemoglobin 11.2 gm/dl (10.1-14.3); Mean Corpuscular HGB Conc 34 % (30-34); Mean Corpuscular Volume 87 fl (79-97); Platelet Count 369 K/mm3 (140-440); Red Blood Count 3.82 M/mm3 (3.65-5.03)
[2019-01-04 11:31] LABS: Red Cell Distribution Width 24.5 % (13.2-15.2)
[2019-01-04 11:35] LABS: Bilirubin,Urine NEG (Negative); Blood,Urine NEG (Negative); Color,Urine Yellow (Yellow); Protein,Urine <15 mg/dL mg/dL (Negative); Urobilinogen,Urine < 2.0 mg/dL (<2.0)
[2019-01-04 13:51] LABS: Basophils % (Manual) 0 % (0.0-1.8); Total Cells Counted 100
[2019-01-04 13:52] LABS: Hypochromasia Few; Target Cells 3+
[2019-01-04 13:53] LABS: Platelet Estimate Consistent w Auto
== END 2019-01-04 12:48 | disposition home or self-care (01) ==
LOC: ED 08:34
DX: D57.1 Sickle-cell disease without crisis (principal); F11.20 Opioid dependence, uncomplicated; I10 Essential (primary) hypertension; Z98.890 Other specified postprocedural states; Z79.899 Other long term (current) drug therapy; Z88.1 Allergy status to other antibiotic agents; Z88.5 Allergy status to narcotic agent; Z88.6 Allergy status to analgesic agent; Z88.8 Allergy status to other drugs, medicaments and biological substances
CPT/HCPCS: 36415; 80053; 81001; 84703; 85007; 85025; 85045; 96374; 96375; 96376; 99284; J1170; J1200; J2405; 96361

== ENCOUNTER 2019-01-06 06:51 | Emergency (ER) | payer MEDICARE ==
[2019-01-06 08:31] VITALS: BP 117/72
--- NOTE | 2019-01-06 09:35 | Emergency Department Report ---
ED General Adult HPI - General Chief complaint: Sickle Cell Crisis Stated complaint: SICKLE CELL CRISIS Time Seen by Provider: 01/06/19 08:33 Source: patient, EMS, old records reviewed Mode of arrival: Wheelchair Limitations: No Limitations - History of Present Illness Initial comments: 43-year-old female with a past medical history of sickle cell SC presents to the hospital once again complaining of pain secondary to sickle cell crisis for 2 days. Patient complains of pain to bilateral lower extremities. No reports of fever, weakness, numbness, redness, or swelling. I saw patient recently on January 04. At that time patient patient stated that she did not have any home medications. As per [place] prescription drug monitoring site review patient has been flagged for receiving controlled substances prescriptions written about 9 prescribers that have been filled at 9 pharmacies during the past 3 months. Last prescription was for [place] 10 mg 120 tablets on December 30 and morphine ER 30 mg 60 tablets prescribed on December 19. This is a 1 month supply of both these medications. When I saw the patient on January 04 she claims to have taken all of this medication already. I suspect that patient is misusing medication and at risk for overdose if she is indeed taking all of his narcotic medication in a short amount of time. She has had multiple ER visits here in November and December for sickle cell related pain including 1 admission (for 1 day). Her hemoglobin on the was normal. Each visit patient refuses initial blood draw and requests pain medication prior to IV blood draw. Thread Cutter: Dr. Rocky Sanders [place] cancel specialist affiliated with [facility] - Related Data Previous Rx's Medication Instructions Recorded Last Taken Type Amlodipine Besylate [Norvasc] 10 mg PO DAILY 30 Days tablet 12/28/18 Unknown Rx Folic Acid [Folvite] 1 mg PO QDAY #30 tablet 12/28/18 Unknown Rx Nicotine [Habitrol] 14 mg TD DAILY #30 patch 12/28/18 Unknown Rx Promethazine [Phenergan] 25 mg PO Q6HR PRN #30 tab 01/04/19 Unknown Rx Allergies Allergy/AdvReac Type Severity Reaction Status Date / Time aztreonam [From Azactam] Allergy Anaphylaxis Verified 12/17/18 15:26 butorphanol [From Stadol] Allergy Hives Verified 12/17/18 15:26 fentanyl Allergy Unknown Verified 12/17/18 15:26 ketorolac [From Toradol] Allergy Hives Verified 12/17/18 15:26 meperidine [From Demerol] Allergy Unknown Verified 12/17/18 15:26 prochlorperazine Allergy Hives Verified 12/17/18 15:26 [From Compazine] ED Review of Systems ROS: Stated complaint: SICKLE CELL CRISIS Other details as noted in HPI Comment: All other systems reviewed and negative ED Past Medical Hx - Past Medical History Previous Medical History?: Yes Hx Hypertension: Yes Hx Pulmonary Embolism: Yes Hx Sickle Cell Disease: Yes ([place]) Additional medical history: 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), PE (2018) - Surgical History Past Surgical History?: Yes Additional Surgical History: C section - Social History Smoking Status: Never Smoker - Medications Home Medications: Home Medications Medication Instructions Recorded Confirmed Last Taken Type Amlodipine Besylate [Norvasc] 10 mg PO DAILY 30 Days tablet 12/28/18 Unknown Rx Folic Acid [Folvite] 1 mg PO QDAY #30 tablet 12/28/18 Unknown Rx Nicotine [Habitrol] 14 mg TD DAILY #30 patch 12/28/18 Unknown Rx Promethazine [Phenergan] 25 mg PO Q6HR PRN #30 tab 01/04/19 Unknown Rx ED Physical Exam - General Limitations: No Limitations - Other Other exam information: General: No limitations, patient is alert in no acute distress Head exam: Atraumatic, normocephalic Eyes exam: Normal appearance, nonicteric sclerae ENT: Moist mucous membrane Neck exam: Normal inspection Respiratory exam: Clear to auscultation bilateral, no wheezes, rales, crackles Cardiovascular: Normal rate and rhythm, normal heart sounds Abdomen: Soft, nondistended, and nontender, with normal bowel sounds, no rebound, or guarding Extremity: Full range of motion normal inspection no deformity, no tenderness, edema, warm, or erythema Back: Normal Inspection, full range of motion, no tenderness Neurologic: Alert, oriented x3, cranial nerves intact, no motor or sensory deficit Psychiatric: normal affect, normal mood Skin: Warm, dry, intact ED Course Vital Signs 01/06/19 01/06/19 07:06 08:31 Temperature 98.7 F 98.5 F Pulse Rate 76 60 Respiratory 20 16 Rate Blood Pressure 109/75 Blood Pressure 117/72 [Left] O2 Sat by Pulse 100 100 Oximetry - Consultations Consultation #1: 01/06/19 09:[address] Rocky Orourke, pt's primary mixer operator raw salt affiliated with [facility]. He is very familiar with the patient. He states that at one point patient was lost to follow-up. She has had multiple mixer operator raw salt has been fired from multiple hematology practices. They recently reconnected with the patient and she was given a one-month supply of pain meds and counseled of the importance of making the medication last till next appointment and not misuse the medication. They also informed her that she would not get any additional prescriptions before the due refill date. He also mentions he has received calls in the past from multiple hospitals in the area from ER doctors. At one point she was going to [facility] ER on a regular basis. He states she has sickle cell SC 01/06/19 09:53 ED Medical Decision Making - Medical Decision Making Case was discussed with Nikolas Marie MD about my concern that the pt is misusing narcotics (taking to man) and coming to ed frequently for additional narcotic treatment I also informed him of the discussion I had with patient's primary mixer operator raw salt He will inform risk management Patient offered lab draw to rule out need for blood transfusion or infection which she declined She was offered Tylenol and/or Motrin which she also declined. Patient then left the department prior to receiving her discharge instructions. H&H and lab work was on recent ER visit - Differential Diagnosis narcotic dependence and abuse, sickle cell crisis, infection, sickle cell a Critical Care Time: No Critical care attestation.: If time is entered above; I have spent that time in minutes in the direct care of this critically ill patient, excluding procedure time. ED Disposition Clinical Impression: Narcotic abuse, Sickle cell anemia, Chronic pain Disposition: DC-01 TO HOME OR SELFCARE Is pt being admited?: No Does the pt Need Aspirin: No Condition: Stable Instructions: Narcotic Abuse (ED), Sickle Cell Crisis (ED) Additional Instructions: You have refused to blow work evaluation to determine if blood transfusion is needed for a sickle cell crisis. We have discussed her case with your mixer operator raw salt is Dr. Hidalgo who has also confirmed that you have received a 1 month supply of morphine and hydrocodone meds will not be refilled until they are due. It is very important that you follow up with your mixer operator raw salt for treatment of your sickle cell. Referrals: Rocky Sanders MD [Other] - 2-3 Days Time of Disposition: 09:35
== END 2019-01-06 09:43 | disposition home or self-care (01) ==
LOC: ED 06:51
DX: D57.1 Sickle-cell disease without crisis (principal); F11.10 Opioid abuse, uncomplicated; G89.29 Other chronic pain; I10 Essential (primary) hypertension; Z79.899 Other long term (current) drug therapy; Z88.6 Allergy status to analgesic agent; Z88.8 Allergy status to other drugs, medicaments and biological substances
CPT/HCPCS: 99284

== ENCOUNTER 2019-01-26 10:47 | Emergency (ER) | payer MEDICARE ==
--- NOTE | 2019-01-26 11:12 | Emergency Department Report ---
ED General Adult HPI - General Chief complaint: Sickle Cell Crisis Stated complaint: SICKLE CELL CRISIS/BACK PAIN Time Seen by Provider: 01/26/19 11:06 Source: patient, EMS (ems notes not available at time of chart dictation), RN notes reviewed, old records reviewed Mode of arrival: Ambulatory Limitations: No Limitations - History of Present Illness Initial comments: This is a 43-year-old female. I have evaluated this patient in the past. Past medical history includes presumed narcotic dependence, sickle cell disease, and psychiatric disease. The patient states that she is not . The patient presents to the ER today with complaint of nontraumatic paralumbar back pain. The back pain is sharp and throbbing. It does not radiate anywhere. She reports no exacerbating or relieving factors. Patient reports taking Lortab at home, with no improvement in her symptoms. She denies headache, neck pain, chest pain, abdominal pain, fevers, chills, shortness of breath. She denies urinary symptoms/dysuria. She is not sure what might have triggered this particular event. -: Gradual, hour(s), days(s) Location: back Quality: aching Consistency: constant Improves with: medication, rest Worsens with: movement - Related Data Previous Rx's Medication Instructions Recorded Last Taken Type Amlodipine Besylate [Norvasc] 10 mg PO DAILY 30 Days tablet 12/28/18 Unknown Rx Folic Acid [Folvite] 1 mg PO QDAY #30 tablet 12/28/18 Unknown Rx Nicotine [Habitrol] 14 mg TD DAILY #30 patch 12/28/18 Unknown Rx Promethazine [Phenergan] 25 mg PO Q6HR PRN #30 tab 01/04/19 Unknown Rx Allergies Allergy/AdvReac Type Severity Reaction Status Date / Time aztreonam [From Azactam] Allergy Anaphylaxis Verified 12/17/18 15:26 butorphanol [From Stadol] Allergy Hives Verified 12/17/18 15:26 fentanyl Allergy Unknown Verified 12/17/18 15:26 ketorolac [From Toradol] Allergy Hives Verified 12/17/18 15:26 meperidine [From Demerol] Allergy Unknown Verified 12/17/18 15:26 prochlorperazine Allergy Hives Verified 12/17/18 15:26 [From Compazine] ED Review of Systems ROS: Stated complaint: SICKLE CELL CRISIS/BACK PAIN Other details as noted in HPI Constitutional: denies: fever Eyes: denies: eye discharge ENT: denies: epistaxis Respiratory: denies: cough Cardiovascular: denies: chest pain Gastrointestinal: denies: abdominal pain Genitourinary: denies: dysuria Musculoskeletal: back pain Skin: denies: lesions Neurological: denies: weakness Psychiatric: denies: anxiety ED Past Medical Hx - Past Medical History Hx Hypertension: Yes Hx Pulmonary Embolism: Yes Hx Sickle Cell Disease: Yes ([place]) Additional medical history: 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), PE (2018) - Surgical History Past Surgical History?: Yes Additional Surgical History: C section - Social History Smoking Status: Current Every Day Smoker Substance Use Type: None - Medications Home Medications: Home Medications Medication Instructions Recorded Confirmed Last Taken Type Amlodipine Besylate [Norvasc] 10 mg PO DAILY 30 Days tablet 12/28/18 Unknown Rx Folic Acid [Folvite] 1 mg PO QDAY #30 tablet 12/28/18 Unknown Rx Nicotine [Habitrol] 14 mg TD DAILY #30 patch 12/28/18 Unknown Rx Promethazine [Phenergan] 25 mg PO Q6HR PRN #30 tab 01/04/19 Unknown Rx ED Physical Exam - General Limitations: No Limitations General appearance: alert, in no apparent distress - Head Head exam: Present: atraumatic, normocephalic - Eye Eye exam: Present: normal appearance, EOMI. Absent: nystagmus - ENT ENT exam: Present: normal exam, normal orophraynx, mucous membranes moist, normal external ear exam - Neck Neck exam: Present: normal inspection, full ROM. Absent: tenderness, meningismus - Respiratory Respiratory exam: Present: normal lung sounds bilaterally. Absent: respiratory distress - Cardiovascular Cardiovascular Exam: Present: normal rhythm, bradycardia, normal heart sounds. Absent: systolic murmur, diastolic murmur, rubs, gallop - GI/Abdominal GI/Abdominal exam: Present: soft. Absent: distended, tenderness, guarding, rebound, rigid, pulsatile mass - Extremities Exam Extremities exam: Present: normal inspection, full ROM, other (2+ pulses noted in the bilateral upper, lower extremities. Compartments soft. No long bony tenderness. The pelvis is stable.). Absent: pedal edema, joint swelling, calf tenderness - Back Exam Back exam: Present: normal inspection, full ROM. Absent: tenderness, CVA tenderness (R), CVA tenderness (L), paraspinal tenderness, vertebral tenderness - Neurological Exam Neurological exam: Present: alert, oriented X3, other (Extraocular movements intact. Tongue midline. No facial droop. Facial sensation intact to light touch in the V1, V2, V3 distribution bilaterally. 5 and 5 strength in 4 extremities.. Sensation is intact to light touch in 4 extremities.). Absent: motor sensory deficit - Psychiatric Psychiatric exam: Present: normal affect, normal mood - Skin Skin exam: Present: warm, dry, intact, normal color. Absent: rash ED Course Vital Signs 01/26/19 01/26/19 10:54 12:32 Temperature 99.1 F Pulse Rate 58 L 58 L Respiratory 16 16 Rate Blood Pressure 128/79 Blood Pressure 141/78 [Left] O2 Sat by Pulse 100 98 Oximetry - Reevaluation(s) Reevaluation #1: 01/26/19 11:11 [place] CHAIRMAN & CHIEF EXECUTIVE OFFICER AWARE Please note that this person has received controlled substances prescriptions written by 5 prescribers and had them filled at 7 pharmacies during the past 3 months.This equals or exceeds the threshold of 5 prescribers and 5 pharmacies and while there may be a valid reason for this, it also may be indicative of the practice of prescriber and pharmacy shopping. PATIENT'S COUNTS ALERT THRESHOLDS Prescribers: 5 Prescribers: 5 Pharmacies: 7 Pharmacies: 5 Time Frame: 3 Months Summary Summary Total Prescriptions 71 Total Private Pay 4 Total Prescribers 40 Total Pharmacies 17 Opioids* (excluding buprenorphine) Current Qty 158.0 Current MME/day 170.0 30 Day Avg MME/day 133.33 Buprenorphine* Current Qty 0.0 Current mg/day 0.0 30 Day Avg mg/day 0.0 Prescriptions Filled ID Written Drug QTY Days Prescriber Rx # Pharmacy * Refills Daily Dose Pymt Type CHAIRMAN & CHIEF EXECUTIVE OFFICER 01/21/2019 7 01/20/2019 HYDROCODONE-ACETAMIN 10-325 MG 120.0 30 AA [facility]I [id number] [facility] ([id number]) 0 40.0 MME Comm Ins 01/14/2019 7 01/14/2019 MORPHINE SULF ER 30 MG TABLET 60.0 30 AA [facility]I [id number] [facility] (2894) 0 60.0 MME Comm Ins 01/07/2019 7 01/07/2019 MORPHINE SULF ER 15 MG TABLET 60.0 30 AA [facility]I [id number] [facility] (2919) 0 30.0 MME Comm Ins [place] 12/30/2018 1 12/30/2018 HYDROCODONE-ACETAMIN 10-325 MG 120.0 30 AA [facility] [id number] [facility] (2919) 0 40.0 [place] 12/19/2018 8 12/19/2018 MORPHINE SULF ER 30 MG TABLET 60.0 30 [facility] [id number] [facility] (0662) 0 60.0 [place]ME [place] 12/17/2018 8 12/17/2018 [id number] 50-300-40 15.0 5 AN [facility] [id number] [facility] (3243) 0 [place] 12/06/2018 1 12/06/2018 HYDROCODONE-ACETAMIN 10-325 MG 90.0 22 AA [facility] [id number] [facility] (3266) 0 40.91 [place] 12/04/2018 11 11/15/2018 HYDROCODONE-ACETAMIN 10-325 MG 9.0 9 [facility] [id number] [facility] (5607) 0 10.0 MME Comm [place] 11/13/2018 8 11/11/2018 ACETAMINOPHEN-COD #3 TABLET 15.0 3 [facility] [id number] [facility] (1260) 0 22.5 [place]ME [place] 11/08/2018 6 11/08/2018 HYDROCODONE-ACETAMIN 10-325 MG 45.0 15 [facility] [id number] [facility] (2132) 0 30.0 [place]ME [place] Reevaluation #2: 01/26/19 11:18 Differential diagnosis, including not limited to: Chronic pain, narcotic dependence, sickle cell Assessment and plan: 43-year-old female who endorses sickle cell associated back pain. Objectively speaking, she is afebrile with reassuring vital signs. She appears to be quite comfortable. There is no scleral icterus. There is no long bony tenderness. There is no pulsatile abdominal mass, and no sensory or physical exam findings to suggest epidural compression syndrome. We will treat the patient with pain medication. She just had a Lortab prescription filled within the past 2 weeks. She does not appear to have an emergent condition at this time. After her pain has been treated, she may be discharged to follow-up with her outpatient benefit specialist. Reevaluation #3: 01/26/19 12:49 Patient had an uneventful stay. Vital signs unremarkable. Patient suitable for discharge. ED Medical Decision Making - Lab Data Vital Signs 01/26/19 10:54 Temperature 99.1 F Pulse Rate 58 L Respiratory 16 Rate Blood Pressure 128/79 O2 Sat by Pulse 100 Oximetry Critical care attestation.: If time is entered above; I have spent that time in minutes in the direct care of this critically ill patient, excluding procedure time. ED Disposition Clinical Impression: History of sickle cell disease Back pain Qualifiers: Back pain location: low back pain Chronicity: acute Back pain laterality: unspecified Sciatica presence: without sciatica Qualified Code(s): M54.5 - Low back pain Disposition: - TO HOME OR SELFCARE Is pt being admited?: No Does the pt Need Aspirin: No Condition: Stable Additional Instructions: Rest, avoid heavy lifting, and avoid strenuous physical activities. Continue outpatient pain medications that were prescribed. Follow up with the primary care doctor, can striper or pain specialist within the next 2 weeks. Return to the emergency room right away with new, worsening or different symptoms not present on the initial emergency room evaluation. Referrals: KIRSTY VALIENTE MD [Staff Physician] - 7-10 days DAVID MEYERS MD [Staff Physician] - 7-10 days
[2019-01-26] MEDS ORDERED: DILAUDID IM ONE (11:16)
[2019-01-26] MEDS ORDERED: BENADRYL PO ONE (11:16)
[2019-01-26] MEDS ORDERED: PHENERGAN PO ONE (11:16)
[2019-01-26 12:33] VITALS: BP 141/78
[2019-01-26] MEDS ORDERED: NORCO 10/325 PO ONE (12:49)
== END 2019-01-26 13:35 | disposition home or self-care (01) ==
LOC: ED 10:47
DX: M54.5 Low back pain (principal); D57.1 Sickle-cell disease without crisis; I10 Essential (primary) hypertension; F17.200 Nicotine dependence, unspecified, uncomplicated; Z98.890 Other specified postprocedural states; Z88.6 Allergy status to analgesic agent; Z88.4 Allergy status to anesthetic agent; Z88.8 Allergy status to other drugs, medicaments and biological substances
CPT/HCPCS: 96372; 99282; J1170; Q0169

== ENCOUNTER 2019-01-28 10:40 | Emergency (ER) | payer MEDICARE ==
[2019-01-28] MEDS ORDERED: DILAUDID IV ONE (11:54)
[2019-01-28] MEDS ORDERED: ZOFRAN IV ONE (11:54)
[2019-01-28] MEDS ORDERED: D5NS 0.2% 1,000 ML IV SCH (12:00)
[2019-01-28 12:59] LABS: Hematocrit 30.3 % (30.3-42.9); Hemoglobin 10.5 gm/dl (10.1-14.3); Mean Corpuscular HGB Conc 35 % (30-34); Mean Corpuscular Volume 78 fl (79-97); Platelet Count 253 K/mm3 (140-440); Red Blood Count 3.88 M/mm3 (3.65-5.03)
[2019-01-28 13:00] LABS: Red Cell Distribution Width 22.5 % (13.2-15.2)
[2019-01-28 13:03] VITALS: BP 137/94
[2019-01-28 13:09] LABS: Bacteria,Urine 1+ /HPF (Negative); Bilirubin,Urine NEG (Negative); Blood,Urine NEG (Negative); Color,Urine Yellow (Yellow); Mucus,Urine FEW /HPF; Protein,Urine <15 mg/dL mg/dL (Negative)
--- NOTE | 2019-01-28 13:26 | Emergency Department Report ---
ED General Adult HPI - General Chief complaint: Sickle Cell Crisis Stated complaint: SICKLE CELL CRISIS/BACK PAIN Time Seen by Provider: 01/28/19 11:38 Source: EMS, old records reviewed Mode of arrival: Ambulatory Limitations: No Limitations - History of Present Illness Initial comments: 43-year-old female with a past medical history of sickle cell disease presents to Hospital complaining of sickle cell crisis 2 days. She complains of lower back pain that is constant and not alleviated by Lortab 10/325 mg. Patient presents to the ER frequently with complaints of sickle cell crisis and requesting narcotics. Once again she neglects to mention that she was also prescribed a 30 day supply of morphine at the beginning of January. She was seen here 2 days ago by and left the department because she refused blood draw prior to pain medications. I am also familiar with this patient and spoke to her primary cut off saw set up operator last month regarding her frequent ER visits and requests for narcotic medication. He informed me that he repeatedly tried to speak to the patient in regards to pain medication compliance (Not taking more medication than prescribed). He also informed me that patient is known to frequent to multiple ERs requesting narcotic medication. Patient denies any trauma, fever, dysuria, nausea, urinary incontinence, vomiting, hematuria, leg weakness, or leg numbness Severity scale (0 -10): 5 - Related Data Previous Rx's Medication Instructions Recorded Last Taken Type Amlodipine Besylate [Norvasc] 10 mg PO DAILY 30 Days tablet 12/28/18 Unknown Rx Folic Acid [Folvite] 1 mg PO QDAY #30 tablet 12/28/18 Unknown Rx Nicotine [Habitrol] 14 mg TD DAILY #30 patch 12/28/18 Unknown Rx Promethazine [Phenergan] 25 mg PO Q6HR PRN #30 tab 01/04/19 Unknown Rx Allergies Allergy/AdvReac Type Severity Reaction Status Date / Time aztreonam [From Azactam] Allergy Anaphylaxis Verified 12/17/18 15:26 butorphanol [From Stadol] Allergy Hives Verified 12/17/18 15:26 fentanyl Allergy Unknown Verified 12/17/18 15:26 ketorolac [From Toradol] Allergy Hives Verified 12/17/18 15:26 meperidine [From Demerol] Allergy Unknown Verified 12/17/18 15:26 prochlorperazine Allergy Hives Verified 12/17/18 15:26 [From Compazine] ED Review of Systems ROS: Stated complaint: SICKLE CELL CRISIS/BACK PAIN Other details as noted in HPI ED Past Medical Hx - Past Medical History Hx Hypertension: Yes Hx Pulmonary Embolism: Yes Hx Sickle Cell Disease: Yes ([place]) Additional medical history: 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), PE (2018) - Surgical History Past Surgical History?: No Additional Surgical History: C section - Social History Smoking Status: Never Smoker - Medications Home Medications: Home Medications Medication Instructions Recorded Confirmed Last Taken Type Amlodipine Besylate [Norvasc] 10 mg PO DAILY 30 Days tablet 12/28/18 Unknown Rx Folic Acid [Folvite] 1 mg PO QDAY #30 tablet 12/28/18 Unknown Rx Nicotine [Habitrol] 14 mg TD DAILY #30 patch 12/28/18 Unknown Rx Promethazine [Phenergan] 25 mg PO Q6HR PRN #30 tab 01/04/19 Unknown Rx ED Physical Exam - General Limitations: No Limitations ED Course Vital Signs 01/28/19 01/28/19 11:49 13:03 Temperature 98.5 F Pulse Rate 74 66 Respiratory 18 18 Rate Blood Pressure 126/65 Blood Pressure 137/94 [Right] O2 Sat by Pulse 100 100 Oximetry ED Medical Decision Making - Lab Data Result diagrams: 01/28/19 12:36 Lab Results 01/28/19 01/28/19 01/28/19 Range/Units 12:36 12:36 12:36 WBC 4.0 L (4.5-11.0) K/mm3 RBC 3.88 (3.65-5.03) M/mm3 Hgb 10.5 (10.1-14.3) gm/dl Hct 30.3 (30.3-42.9) % MCV 78 L (79-97) fl MCH 27 L (28-32) pg MCHC 35 H (30-34) % RDW 22.5 H (13.2-15.2) % Plt Count 253 (140-440) K/mm3 [place] % (Auto) Floorperson Percent Retic 1.15 (0.78-2.58) % HCG, Qual Negative (Negative) Urine Color Yellow (Yellow) Urine Turbidity Slightly-cloudy (Clear) Urine pH 6.0 (5.0-7.0) Ur Specific [place] 1.016 (1.003-1.030) Urine Protein <15 mg/dl (Negative) mg/dL Urine Glucose (UA) Neg (Negative) mg/dL Urine Ketones Neg (Negative) mg/dL Urine Blood Neg (Negative) Urine Nitrite Neg (Negative) Urine Bilirubin Neg (Negative) Urine Urobilinogen 4.0 (<2.0) mg/dL Ur Leukocyte Esterase Neg (Negative) Urine WBC (Auto) 1.0 (0.0-6.0) /HPF Urine RBC (Auto) 2.0 (0.0-6.0) /HPF U Epithel Cells (Auto) 6.0 (0-13.0) /HPF Urine Bacteria (Auto) 1+ (Negative) /HPF Urine Mucus Few /HPF - Medical Decision Making [place] monitoring site reviewed: 01/21/2019 7 01/20/2019 HYDROCODONE-ACETAMIN 10-325 MG 120.0 30 AA [facility] [id number] [facility] (2919) 0 40.0 MME 01/14/2019 7 01/14/2019 MORPHINE SULF ER 30 MG TABLET 60.0 30 AA [facility]I [id number] [facility] (2919) 0 60.0 MME Comm Ins [place] 01/07/2019 7 01/07/2019 MORPHINE SULF ER 15 MG TABLET 60.0 30 AA [facility]I [id number] [facility] (2919) 0 30.0 MME Comm Ins [place] Pt has filled 120 tabs of Morphine this month alone which equates to a 60 day supply as well a 30 day supply of hydrocodone/acet 10/325mg when asked directly about morphine patient states she does still have morphine tablets at home pt is known to frequent ER's requesting Narcotics Labs today reveal normal wbc, hgb, and retic count hcg neg, no signs of UTI pt does not appear to be in distress normal vitals pt will be d/kathy to f/u with her heme doctor. - Differential Diagnosis drug-seeking, sickle cell crisis, anemia, infection, UTI Critical Care Time: No Critical care attestation.: If time is entered above; I have spent that time in minutes in the direct care of this critically ill patient, excluding procedure time. ED Disposition Clinical Impression: Sickle cell anemia, Back pain, Narcotic dependence Disposition: TO HOME OR SELFCARE Is pt being admited?: No Does the pt Need Aspirin: No Condition: Stable Instructions: Sickle Cell Crisis (ED), Back Pain (ED) Additional Instructions: Continuing your current medications as prescribed. Follow up with your doctor or the clinic/doctor provided. Return if symptoms worsen as indicated by your discharge instructions Referrals: your, cut off saw set up operator [Other] - 3-5 Days Time of Disposition: 13:40
[2019-01-28 16:43] LABS: Basophils % (Manual) 0 % (0.0-1.8); Eosinophils % (Manual) 0 % (0.0-4.3); Total Cells Counted 100
[2019-01-28 16:45] LABS: Anisocytosis 1+; Platelet Estimate Consistent w Auto; Target Cells 3+
== END 2019-01-28 14:20 | disposition home or self-care (01) ==
LOC: ED 10:40
DX: D57.1 Sickle-cell disease without crisis (principal); F11.20 Opioid dependence, uncomplicated; Z88.6 Allergy status to analgesic agent; Z88.8 Allergy status to other drugs, medicaments and biological substances
CPT/HCPCS: 36415; 81001; 84703; 85007; 85025; 85045; 96374; 96375; 99283; J1170; J2405

== ENCOUNTER 2019-02-04 15:34 | Emergency (ER) | payer MEDICARE ==
[2019-02-04 16:18] VITALS: BP 113/77
--- NOTE | 2019-02-04 16:19 | Event Note ---
ED Screening Note Date of service: 02/04/19 Time: 16:17 ED Screening Note: 43 y o female presents to Ed for med clearance to be placed into [place] This initial assessment/diagnostic orders/clinical plan/treatment(s) is/are subject to change based on patients health status, clinical progression and re- assessment by fellow clinical providers in the ED. Further treatment and workup at subsequent clinical providers discretion. Patient/guardian urged not to elope from the ED as their condition may be serious if not clinically assessed and managed. Initial orders include:
[2019-02-04 16:54] LABS: Bilirubin,Urine NEG (Negative); Blood,Urine NEG (Negative); Color,Urine Yellow (Yellow); Protein,Urine <15 mg/dL mg/dL (Negative); Urobilinogen,Urine < 2.0 mg/dL (<2.0)
[2019-02-04 16:54] LABS: Hematocrit 33.6 % (30.3-42.9); Hemoglobin 11.6 gm/dl (10.1-14.3); Mean Corpuscular HGB Conc 35 % (30-34); Mean Corpuscular Volume 77 fl (79-97); Platelet Count 286 K/mm3 (140-440); Red Blood Count 4.39 M/mm3 (3.65-5.03)
[2019-02-04 16:55] LABS: Red Cell Distribution Width 22.4 % (13.2-15.2)
[2019-02-04 16:58] LABS: BUN/Creatinine Ratio 14; Blood Urea Nitrogen 10 mg/dL (7-17); Calcium 9.3 mg/dL (8.4-10.2); Hemolysis Index 11
[2019-02-04 16:59] LABS: Amphetamine Screen,Urine PRESUMPTIVE NEGATIVE; Benzodiazepines Screen,Urine PRESUMPTIVE NEGATIVE; Cannabinoid Screen,Urine PRESUMPTIVE NEGATIVE; Cocaine Screen,Urine PRESUMPTIVE NEGATIVE; Methadone Screen,Urine PRESUMPTIVE NEGATIVE; Opiate Screen,Urine PRESUMPTIVE NEGATIVE
[2019-02-04 18:15] LABS: Anisocytosis 1+; Basophils % (Manual) 0 % (0.0-1.8); Hypochromasia 1+; Total Cells Counted 100
[2019-02-04 18:16] LABS: Platelet Estimate Consistent w Auto; Target Cells 2+
== END 2019-02-04 18:45 | disposition home or self-care (01) ==
LOC: ED 15:34
DX: F32.9 Major depressive disorder, single episode, unspecified (principal); F41.9 Anxiety disorder, unspecified; Z53.21 Procedure and treatment not carried out due to patient leaving prior to being seen by health care provider
CPT/HCPCS: 36415; 80048; 80307; 80320; 81001; 85007; 85025; G0480

== ENCOUNTER 2019-11-22 14:08 | Emergency (ER) | payer MEDICARE ==
[2019-11-22] MEDS ORDERED: SODIUM CHLORIDE 0.9% 1000 ML 1,000 ML IV ONE ×2 (14:23)
[2019-11-22] MEDS ORDERED: HYDROmorphone 1 MG/1 ML INJ IV ONE ×2 (14:23→16:37)
[2019-11-22 14:35] VITALS: BP 131/85
[2019-11-22 15:44] LABS: BUN/Creatinine Ratio 10; Blood Urea Nitrogen 5 mg/dL (7-17); Hemolysis Index 13
[2019-11-22 15:53] LABS: Hematocrit 29.9 % (30.3-42.9); Hemoglobin 10.3 gm/dl (10.1-14.3); Mean Corpuscular HGB Conc 35 % (30-34); Mean Corpuscular Volume 76 fl (79-97); Platelet Count 254 K/mm3 (140-440); Red Blood Count 3.96 M/mm3 (3.65-5.03); Red Cell Distribution Width 18.4 % (13.2-15.2)
[2019-11-22] MEDS ORDERED: HYDROmorphone 1 MG/1 ML INJ ONE (16:35)
--- NOTE | 2019-11-22 16:56 | Emergency Department Report ---
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 Patient has not had her morphine and Percocet for approximately 2weeks because she has not been able to get in to the office to see her primary care physician. She denies any fevers chills nausea vomiting diarrhea or chest pain. Severity scale (0 -10): 8 - Related Data Previous Rx's Medication Instructions Recorded Last Taken Type Amlodipine Besylate [Norvasc] 10 mg PO DAILY 30 Days tablet 12/28/18 Unknown Rx Folic Acid [Folvite] 1 mg PO QDAY #30 tablet 12/28/18 Unknown Rx Nicotine [Habitrol] 14 mg TD DAILY #30 patch 12/28/18 Unknown Rx Promethazine [Phenergan] 25 mg PO Q6HR PRN #30 tab 01/04/19 Unknown Rx oxyCODONE /ACETAMINOPHEN [Percocet 1 tab PO Q6HR PRN #6 tablet 11/22/19 Unknown Rx 5/325] Allergies Allergy/AdvReac Type Severity Reaction Status Date / Time aztreonam [From Azactam] Allergy Anaphylaxis Verified 11/22/19 14:35 butorphanol [From Stadol] Allergy Hives Verified 11/22/19 14:35 fentanyl Allergy Unknown Verified 11/22/19 14:35 ketorolac [From Toradol] Allergy Hives Verified 11/22/19 14:35 meperidine [From Demerol] Allergy Unknown Verified 11/22/19 14:35 prochlorperazine Allergy Hives Verified 11/22/19 14:35 [From Compazine] ED Review of Systems ROS: Stated complaint: SICKLE CELL PAIN Other details as noted in HPI Comment: All other systems reviewed and negative ED Past Medical Hx - Past Medical History Previous Medical History?: Yes Hx Hypertension: Yes Hx Pulmonary Embolism: Yes Hx Sickle Cell Disease: Yes ([place]) Hx Psychiatric Treatment: Yes (Depression, Anxiety) Additional medical history: avascular necrosis (shoulders blt and left hip), PE (2018) - Surgical History Past Surgical History?: Yes Additional Surgical History: C section. Bilateral shoulder replacement. Left hip replacement - Social History Smoking Status: Current Some Day Smoker Substance Use Type: None - Medications Home Medications: Home Medications Medication Instructions Recorded Confirmed Last Taken Type Amlodipine Besylate [Norvasc] 10 mg PO DAILY 30 Days tablet 12/28/18 Unknown Rx Folic Acid [Folvite] 1 mg PO QDAY #30 tablet 12/28/18 Unknown Rx Nicotine [Habitrol] 14 mg TD DAILY #30 patch 12/28/18 Unknown Rx Promethazine [Phenergan] 25 mg PO Q6HR PRN #30 tab 01/04/19 Unknown Rx oxyCODONE /ACETAMINOPHEN [Percocet 1 tab PO Q6HR PRN #6 tablet 11/22/19 Unknown Rx 5/325] ED Physical Exam - General Limitations: No Limitations General appearance: alert, in no apparent distress - Head Head exam: Present: atraumatic, normocephalic - Eye Eye exam: Present: normal appearance - ENT ENT exam: Present: mucous membranes moist - Neck Neck exam: Present: normal inspection - Respiratory Respiratory exam: Present: normal lung sounds bilaterally. Absent: respiratory distress, wheezes, rales, rhonchi - Cardiovascular Cardiovascular Exam: Present: regular rate, normal rhythm, normal heart sounds. Absent: systolic murmur, diastolic murmur, rubs, gallop - GI/Abdominal GI/Abdominal exam: Present: soft, normal bowel sounds. Absent: distended, tenderness, guarding, rebound - Extremities Exam Extremities exam: Present: normal inspection - Back Exam Back exam: Present: normal inspection - Neurological Exam Neurological exam: Present: alert, oriented X3 - Psychiatric Psychiatric exam: Present: normal affect, normal mood - Skin Skin exam: Present: warm, dry, intact, normal color. Absent: rash ED Course Vital Signs 11/22/19 14:32 Temperature 99.7 F H Pulse Rate 86 Respiratory 20 Rate Blood Pressure 131/85 [Left] O2 Sat by Pulse 98 Oximetry ED Medical Decision Making - Lab Data Result diagrams: 11/22/19 14:37 11/22/19 14:37 Lab Results 11/22/19 11/22/19 11/22/19 Range/Units 14:37 14:37 14:37 WBC 3.9 L (4.5-11.0) K/mm3 RBC 3.96 (3.65-5.03) M/mm3 Hgb 10.3 (10.1-14.3) gm/dl Hct 29.9 L (30.3-42.9) % MCV 76 L (79-97) fl MCH 26 L (28-32) pg MCHC 35 H (30-34) % RDW 18.4 H (13.2-15.2) % Plt Count 254 (140-440) K/mm3 Lymph % (Auto) Phlebotomy Manager Seg Neutrophils % Phlebotomy Manager WBC Morphology TNR Percent Retic 1.46 (0.78-2.58) % Sodium 137 (137-145) mmol/L Potassium 4.2 (3.6-5.0) mmol/L Chloride 104.5 (98-107) mmol/L Carbon Dioxide 20 L (22-30) mmol/L Anion Gap 17 mmol/L BUN 5 L (7-17) mg/dL Creatinine 0.5 L (0.7-1.2) mg/dL Estimated GFR > 60 ml/min BUN/Creatinine Ratio 10 % Glucose 85 (65-100) mg/dL Calcium 9.0 (8.4-10.2) mg/dL - Medical Decision Making Patient is a 44-year-old F [place] female who states that she is not had her pain medications but is in a sickle cell pain crisis. She is not anemic at this time and of her sickle reticulocyte count is low. Patient will be given 6 Percocet and has been urged to follow-up with her primary care physician for more pain medication. Critical care attestation.: If time is entered above; I have spent that time in minutes in the direct care of this critically ill patient, excluding procedure time. ED Disposition Clinical Impression: Sickle cell crisis Chronic pain Qualifiers: Chronic pain type: other chronic pain Qualified Code(s): G89.29 - Other chronic pain Disposition: TO HOME OR SELFCARE Is pt being admited?: No Does the pt Need Aspirin: No Condition: Stable Additional Instructions: He will need to contact your primary care physician on Sunday to find out how you can get your pain medication prescription Prescriptions: oxyCODONE /ACETAMINOPHEN [Percocet 5/325] 1 tab PO Q6HR PRN #6 tablet PRN Reason: Pain Referrals: PRIMARY CARE, [Primary Care Provider] - 3-5 Days Time of Disposition: 16:56
[2019-11-22 17:27] LABS: Sickle Cells Few; Target Cells 3+; Total Cells Counted 100
[2019-11-22 17:29] LABS: Large Platelets Few; Platelet Estimate Consistent w Auto
== END 2019-11-22 17:45 | disposition home or self-care (01) ==
LOC: ED 14:08
DX: D57.00 Hb-SS disease with crisis, unspecified (principal); I10 Essential (primary) hypertension; G89.29 Other chronic pain; F32.9 Major depressive disorder, single episode, unspecified; F41.9 Anxiety disorder, unspecified; F17.200 Nicotine dependence, unspecified, uncomplicated; Z79.899 Other long term (current) drug therapy; Z98.890 Other specified postprocedural states; Z88.8 Allergy status to other drugs, medicaments and biological substances
CPT/HCPCS: 36415; 80048; 85007; 85025; 85045; 96374; 96376; 99283; J1170; J7030

== ENCOUNTER 2019-12-08 09:41 | Emergency (ER) | payer MEDICARE ==
[2019-12-08 10:11] VITALS: BP 121/82
--- NOTE | 2019-12-08 11:26 | Emergency Department Report ---
Blank Doc - Documentation Documentation: I went to see the patient however patient left. Patient did not give any expl anation to the staff. Patient eloped.
== END 2019-12-08 11:31 | disposition left against medical advice (07) ==
LOC: ED 09:41
DX: M54.5 Low back pain (principal); D57.00 Hb-SS disease with crisis, unspecified; Z53.21 Procedure and treatment not carried out due to patient leaving prior to being seen by health care provider

== ENCOUNTER 2019-12-12 00:10 | Emergency (ER) | payer MEDICARE ==
[2019-12-12 00:17] VITALS: BP 134/87
[2019-12-12 01:34] LABS: Hemoglobin 9.4 gm/dl (10.1-14.3); Mean Corpuscular HGB Conc 34 % (30-34); Mean Corpuscular Volume 74 fl (79-97); Platelet Count 300 K/mm3 (140-440); Red Blood Count 3.77 M/mm3 (3.65-5.03); Red Cell Distribution Width 18.1 % (13.2-15.2)
[2019-12-12 01:48] LABS: BUN/Creatinine Ratio 17; Blood Urea Nitrogen 10 mg/dL (7-17); Hemolysis Index 13
[2019-12-12 03:17] LABS: Basophils % (Manual) 0 % (0.0-1.8); Eosinophils % (Manual) 0 % (0.0-4.3); Hypochromasia 1+; Total Cells Counted 100
[2019-12-12 03:18] LABS: Target Cells 1+
[2019-12-12 03:20] LABS: Anisocytosis Few
[2019-12-12 03:21] LABS: Platelet Estimate Consistent w Auto; Poikilocytosis 1+; Stomatocytes Few; Tear Drop Cells Rare
== END 2019-12-12 02:47 | disposition home or self-care (01) ==
LOC: ED 00:10
DX: D57.00 Hb-SS disease with crisis, unspecified (principal); M54.5 Low back pain; G89.29 Other chronic pain; I10 Essential (primary) hypertension; F17.200 Nicotine dependence, unspecified, uncomplicated; Z98.890 Other specified postprocedural states; Z79.899 Other long term (current) drug therapy; Z88.8 Allergy status to other drugs, medicaments and biological substances
CPT/HCPCS: 36415; 80048; 85007; 85025; 85045

== ENCOUNTER 2020-01-09 14:41 | Emergency (ER) | payer MEDICARE | END 2020-01-09 15:00 | disposition left against medical advice (07) | LOC: ED 14:41 | DX: M54.9 Dorsalgia, unspecified (principal); Z53.21 Procedure and treatment not carried out due to patient leaving prior to being seen by health care provider ==

== ENCOUNTER 2020-06-18 20:11 | Emergency (ER) | payer MEDICARE | END 2020-06-18 20:18 | disposition left against medical advice (07) | LOC: ED 20:11 | DX: D57.00 Hb-SS disease with crisis, unspecified (principal); Z53.21 Procedure and treatment not carried out due to patient leaving prior to being seen by health care provider ==

== ENCOUNTER 2020-06-20 22:52 | Emergency (ER) | payer MEDICARE ==
[2020-06-20 23:01] VITALS: BP 102/71
--- NOTE | 2020-06-21 03:28 | Emergency Department Report ---
ED General Adult HPI - General Chief complaint: Sickle Cell Crisis Stated complaint: SICKLE CELL CRISIS Time Seen by Provider: 06/21/20 03:00 Source: patient Mode of arrival: Ambulatory Limitations: No Limitations - History of Present Illness Initial comments: 44-year-old female presents to ED reporting sickle cell crisis. Patient states she has had back pain and bilateral leg pain x2 days, consistent with her usual crisis pain. -: days(s) (2) Location: back, left, right, lower extremity Quality: aching Consistency: constant Improves with: none Worsens with: none Associated Symptoms: denies: chest pain, cough, fever/chills, shortness of breath - Related Data Home Medications Medication Instructions Recorded Confirmed Last Taken Dilaudid 4 mg PO Q6H 11/27/19 11/27/19 Unknown Morphine ER 60 mg PO Q12H 11/27/19 11/27/19 Unknown Allergies Allergy/AdvReac Type Severity Reaction Status Date / Time aztreonam [From Azactam] Allergy Anaphylaxis Verified 11/28/19 08:26 butorphanol [From Stadol] Allergy Hives Verified 11/28/19 08:26 fentanyl Allergy Unknown Verified 11/28/19 08:26 ketorolac [From Toradol] Allergy Hives Verified 11/28/19 08:26 meperidine [From Demerol] Allergy Unknown Verified 11/28/19 08:26 prochlorperazine Allergy Hives Verified 11/28/19 08:26 [From Compazine] ED Review of Systems ROS: Stated complaint: SICKLE CELL CRISIS Other details as noted in HPI Comment: All other systems reviewed and negative Constitutional: denies: chills, fever Respiratory: denies: cough, shortness of breath Cardiovascular: denies: chest pain Musculoskeletal: as per HPI, back pain ED Past Medical Hx - Past Medical History Previous Medical History?: Yes Hx Hypertension: Yes Hx Pulmonary Embolism: Yes Hx Sickle Cell Disease: Yes ([place]) Hx Psychiatric Treatment: Yes Additional medical history: avascular necrosis (shoulders blt and left hip), PE (2018) - Surgical History Past Surgical History?: Yes Additional Surgical History: C section. Bilateral shoulder replacement. Left hip replacement - Social History Smoking Status: Current Every Day Smoker Substance Use Type: None - Medications Home Medications: Home Medications Medication Instructions Recorded Confirmed Last Taken Type Dilaudid 4 mg PO Q6H 11/27/19 11/27/19 Unknown History Morphine ER 60 mg PO Q12H 11/27/19 11/27/19 Unknown History ED Physical Exam - General Limitations: No Limitations General appearance: alert, in no apparent distress - Head Head exam: Present: atraumatic, normocephalic - Eye Eye exam: Present: normal appearance, EOMI - ENT ENT exam: Present: mucous membranes moist - Neck Neck exam: Present: normal inspection - Respiratory Respiratory exam: Present: normal lung sounds bilaterally. Absent: respiratory distress - Cardiovascular Cardiovascular Exam: Present: regular rate, normal rhythm - GI/Abdominal GI/Abdominal exam: Present: soft. 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 Patient decided to leave AMA. - Differential Diagnosis Malingering, sickle cell, anemia Critical care attestation.: If time is entered above; I have spent that time in minutes in the direct care of this critically ill patient, excluding procedure time. ED Disposition Clinical Impression: Drug-seeking behavior Disposition: DC-07 LEFT AGAINST MED ADVICE Is pt being admited?: No Condition: Undetermined Referrals: PRIMARY CARE, [Primary Care Provider] - 3-5 Days Forms: AMA Form
== END 2020-06-21 04:10 | disposition left against medical advice (07) ==
LOC: ED 22:52
DX: Z76.5 Malingerer [conscious simulation] (principal); I10 Essential (primary) hypertension; Z86.711 Personal history of pulmonary embolism; Z79.01 Long term (current) use of anticoagulants; D57.80 Other sickle-cell disorders without crisis; F17.200 Nicotine dependence, unspecified, uncomplicated; Z98.890 Other specified postprocedural states; Z88.6 Allergy status to analgesic agent
CPT/HCPCS: 99282

== ENCOUNTER 2020-06-22 13:16 | Emergency (ER) | payer MEDICARE | END 2020-06-22 14:42 | disposition left against medical advice (07) | LOC: ED 13:16 | DX: D57.1 Sickle-cell disease without crisis (principal); Z53.21 Procedure and treatment not carried out due to patient leaving prior to being seen by health care provider ==

== ENCOUNTER 2020-07-03 15:41 | Emergency (ER) | payer MEDICARE ==
[2020-07-03 16:23] VITALS: BP 135/95
--- NOTE | 2020-07-03 17:43 | Event Note ---
ED Screening Note Date of service: 07/03/20 Time: 17:43 ED Screening Note: Patient complains of sickle cell pain crisis today This initial assessment/diagnostic orders/clinical plan/treatment(s) is/are subject to change based on patients health status, clinical progression and re- assessment by fellow clinical providers in the ED. Further treatment and workup at subsequent clinical providers discretion. Patient/guardian urged not to elope from the ED as their condition may be serious if not clinically assessed and managed. Initial orders include: Labs
[2020-07-03 18:28] LABS: Alanine Aminotransferase 9 units/L (7-56); Albumin 4.4 g/dL (3.9-5); Blood Urea Nitrogen 8 mg/dL (7-17); Calcium 9.4 mg/dL (8.4-10.2); Hematocrit 30.9 % (30.3-42.9); Hemoglobin 10.4 gm/dl (10.1-14.3); Hemolysis Index 3; Mean Corpuscular HGB Conc 34 % (30-34); Mean Corpuscular Volume 72 fl (79-97); Platelet Count 499 K/mm3 (140-440); Red Blood Count 4.29 M/mm3 (3.65-5.03)
[2020-07-03 18:31] LABS: Red Cell Distribution Width 21.6 % (13.2-15.2)
[2020-07-03 18:34] LABS: BUN/Creatinine Ratio 16
[2020-07-03 20:34] LABS: Anisocytosis 1+; Hypochromasia 1+; Total Cells Counted 100
[2020-07-03 20:35] LABS: Target Cells 2+
[2020-07-03 20:37] LABS: Platelet Estimate Consistent w Auto
== END 2020-07-03 19:00 ==
LOC: ED 15:41
DX: D57.00 Hb-SS disease with crisis, unspecified (principal); Z53.21 Procedure and treatment not carried out due to patient leaving prior to being seen by health care provider
CPT/HCPCS: 36415; 80053; 85007; 85025; 85045